=== PATIENT | female | born 1975 | race Caucasian/White ===

== ENCOUNTER 2020-08-29 08:08 | Emergency (ER) | payer BC, MEDICAID, SELFPAY ==
--- NOTE | ~2020-08-29 | XR_ITS ---
XR chest 2V DATE: 08/29/2020 09:11 INDICATION: Cough, shortness of breath, bilateral lung crackles TECHNIQUE: PA and lateral views COMPARISON: None FINDINGS: Normal heart size. No hilar or mediastinal enlargement. No pulmonary infiltrate or consolid ation, pleural effusion or pulmonary vascular congestion or pneumothorax is detected. There is mild dextro scoliosis of the thoracic spine. IMPRESSION: No active cardiopulmonary disease Reviewed, dictated and finalized at location A.
[2020-08-29 08:27] VITALS: BP 115/72; PULSE 93; RESP 22; TEMP 37.3; O2SAT 96
--- NOTE | 2020-08-29 09:29 | ED.URI ---
HPI - URI/Sore Throat General Chief Complaint: Upper Respiratory Infection Stated Complaint: upper respiratory Time Seen by Provider: 08/29/20 08:54 Source: patient and RN notes reviewed Mode of arrival: ambulatory Limitations: no limitations History of Present Illness HPI Narrative: Patient presents today complaining of a 5-day history cough that is occasionally productive, shortness of breath, nasal congestion, wheezing. Denies loss of taste or smell, nausea, vomiting, sore throat, fever. No history of asthma or COPD. Patient had a negative COVID-19 test 2 days ago. She has been taking Mucinex without relief. Smokes 1 pack/day. MD elicited complaint: cough Related Data Home Medications Medication Instructions Recorded Confirmed alprazolam 08/29/20 hydroxyzine HCl 08/29/20 levothyroxine 08/29/20 sertraline mg 08/29/20 zolpidem PO 08/29/20 Allergies Allergy/AdvReac Type Severity Reaction Status Date / Time No Known Allergies Allergy Verified 08/29/20 08:31 Review of Systems Review of Systems: Narrative: CONSTITUTIONAL: Denies body aches, fever, chills, or sweats. EYES: Denies visual changes, redness, or discharge. ENT: Denies rhinorrhea, sore throat, or otalgia. + Congestion CARDIOVASCULAR: Denies chest pain, palpitations, or edema. RESPIRATORY: + Cough, shortness of breath, wheezing. GASTROINTESTINAL: Denies abdominal pain, nausea, vomiting, or diarrhea. GENITOURINARY: Denies dysuria or hematuria. SKIN: Denies rash, itching, or wounds. MUSCULOSKELETAL: Denies back pain, joint pain, or myalgia. NEUROLOGIC: Denies headache, numbness, tingling, or weakness. PSYCH: Denies depression or anxiety. [facility] Social History Social History (Updated 08/29/20 @ 09:31 by Janelle Saavedra, DRUG AND ALCOHOL TREATMENT SPECIALIST, ) Smoking packs per day: 1 Smoking cigarettes per day: 20.0 Smoking status: Current every day smoker Tobacco type: cigarettes Exam Narrative: Exam Narrative: GENERAL: Well-appearing, well-nourished, and in no acute distress. HEAD: Normocephalic, atraumatic. EYES: EOMI. No redness or drainage. Conjunctivae normal. ENT: Mucous membranes pink and moist. Nares clear. No rhinorrhea. TMs normal bilaterally. Throat normal. Uvula midline. NECK: Normal AROM. Supple. No lymphadenopathy. CHEST: No respiratory distress. Crackles in the bilateral bases. Inspiratory wheeze in the right lower lobe. HEART: Regular rate and rhythm. No murmur appreciated. Normal peripheral pulses. ABDOMEN: Soft, nontender, nondistended, normal active bowel sounds. MUSCULOSKELETAL: No bony tenderness. EXTREMITIES: Normal range of motion. No edema. SKIN: Warm, dry, no rash. Capillary refill normal. Normal skin turgor. NEURO: No focal deficits. Alert and oriented x3. Gait steady. PSYCH: Normal affect. No signs of depression or anxiety. Course Vital Signs Vital signs: Vital Signs Temperature 99.1 F 08/29/20 08:27 Pulse Rate 93 08/29/20 08:27 Respiratory Rate 22 H 08/29/20 08:27 Blood Pressure 115/72 08/29/20 08:27 Pulse Oximetry 96 08/29/20 08:27 Temperature 99.1 F 08/29/20 08:27 Pulse Rate 93 08/29/20 08:27 Respiratory Rate 22 H 08/29/20 08:27 Blood Pressure 115/72 08/29/20 08:27 Pulse Oximetry 96 08/29/20 08:27 Reviewed MDM - URI/Sore Throat Differential Diagnosis Differential diagnosis: Likely upper respiratory infection, otitis media, sinusitis, viral infection, bronchitis and other (Pneumonia) Imaging Data Radiologist's impression: ITS Impressions Chest X-Ray 08/29/20 09:14 IMPRESSION: No active cardiopulmonary disease Critical Care Time Critical Care Time Critical Care Time: No Discharge Plan Discharge Clinical Impression: Bronchitis Upper respiratory infection Qualifiers: URI type: unspecified URI Qualified Code(s): J06.9 - Acute upper respiratory infection, unspecified Patient Disposition: Home, Self-Care Condition: Stable Instructions:
== END 2020-08-29 09:40 | disposition home or self-care (01) ==
PROVIDERS: Emergency Provider Nurse Practitioner; PCP Family Medicine
DX: J40 Bronchitis, not specified as acute or chronic (principal); J06.9 Acute upper respiratory infection, unspecified; F17.210 Nicotine dependence, cigarettes, uncomplicated
CPT/HCPCS: 71046; 99203; G0463

== ENCOUNTER 2025-02-04 18:14 | Emergency (ER) | payer OTHER, SELFPAY ==
[2025-02-04 18:20] VITALS: BP 137/50; PULSE 118; RESP 20; TEMP 36.8; O2SAT 95
--- NOTE | 2025-02-04 18:33 | ED.URI ---
HPI - URI/Sore Throat General Chief Complaint: Upper Respiratory Infection Stated Complaint: Headache/Fever/Chills/Shortness of Breath Time Seen by Provider: 02/04/25 18:25 Source: patient and RN notes reviewed Mode of arrival: ambulatory Limitations: no limitations History of Present Illness HPI Narrative: Patient presents today with a 2 day history of headache, chills, subjective fever, shortness of breath, cough, fatigue. She has tried cold and flu medication and her albuterol rescue inhaler with some relief. Denies any known sick contacts. History of COPD. Related Data Home Medications ?Medication ?Instructions ?Recorded ?Confirmed ?Last Taken ?Type alprazolam 0.5 mg tablet 08/29/20 Unknown History hydroxyzine HCl 25 mg tablet 08/29/20 Unknown History sertraline 100 mg tablet mg 08/29/20 Unknown History zolpidem 12.5 mg tablet,extended PO 08/29/20 Unknown History release,multiphase pantoprazole 40 mg tablet,delayed mg PO 02/04/25 Unknown History release Allergies Allergy/AdvReac Type Severity Reaction Status Date / Time No Known Allergies Allergy Verified 08/29/20 08:31 Review of Systems Review of Systems: CONSTITUTIONAL: Denies body aches. + subjective fever, chills, fatigue EYES: Denies visual changes, redness, or discharge. ENT: Denies rhinorrhea, congestion, sore throat, or otalgia. CARDIOVASCULAR: Denies chest pain, palpitations, or edema. RESPIRATORY: + cough, shortness of breath GASTROINTESTINAL: Denies abdominal pain, nausea, vomiting, or diarrhea. GENITOURINARY: Denies dysuria or hematuria. SKIN: Denies rash, itching, or wounds. MUSCULOSKELETAL: Denies back pain, joint pain, or myalgia. NEUROLOGIC: Denies numbness, tingling, or weakness.+ headache PSYCH: Denies depression or anxiety. [facility] Past Medical History Medical History (Updated 02/04/25 @ 18:48 by Janelle Saavedra, ZEN, BC) COPD (chronic obstructive pulmonary disease) Social History Social History Smoking packs per day: 1 Smoking cigarettes per day: 20.0 Smoking status: Current every day smoker Tobacco type: cigarettes Comments At time of signature, I have reviewed and agree with nursing past medical, surgical, social and family history unless otherwise noted. Please see nursing chart for further information. There is no relevant family history pertinent to the presenting complaint Exam Narrative: GENERAL: Ill-appearing, well-nourished, and in no acute distress. HEAD: Normocephalic, atraumatic. EYES: EOMI. No redness or drainage. Conjunctivae normal. ENT: Mucous membranes pink and moist. Nares clear. No rhinorrhea. TMs normal bilaterally. Throat normal. Uvula midline. NECK: Normal AROM. Supple. No lymphadenopathy. CHEST: No respiratory distress. Clear to auscultation. HEART: Regular rate and rhythm. No murmur appreciated. EXTREMITIES: Normal range of motion. No edema. SKIN: Warm, dry, no rash. Capillary refill normal. Normal skin turgor. NEURO: No focal deficits. Alert and oriented x3. Gait steady. PSYCH: Normal affect. No signs of depression or anxiety. Course Course Level of Care: Express Care Visit Vital Signs Vital signs: Vital Signs Temperature 98.2 F 02/04/25 18:20 Pulse Rate 118 H 02/04/25 18:20 Respiratory Rate 20 02/04/25 18:20 Blood Pressure 137/50 L 02/04/25 18:20 Pulse Oximetry 95 02/04/25 18:20 Oxygen Delivery Room Air 02/04/25 18:20 Temperature 98.2 F 02/04/25 18:20 Pulse Rate 118 H 02/04/25 18:20 Respiratory Rate 20 02/04/25 18:20 Blood Pressure 137/50 L 02/04/25 18:20 Pulse Oximetry 95 02/04/25 18:20 Oxygen Delivery Room Air 02/04/25 18:20 Reviewed MDM - URI/Sore Throat MDM Narrative Medical decision making narrative: COVID and influenza negative. Patient will be treated with a course of prednisone and a refill of her albuterol inhaler for exacerbation of her COPD. Symptoms likely viral in etiology. Discussed [id number] medication use and duration of illness. Anticipatory guidance given. ED precautions given. Differential Diagnosis Differential diagnosis: Likely upper respiratory infection, viral infection, influenza and other (COVID-19, COPD exacerbation, pneumonia) Lab Data Attestation: I reviewed the patient's lab results. Labs: Lab Results 02/04/25 Range/Units 18:41 POC Influenza A Ag Negative (Negative) POC Influenza B Ag Negative (Negative) POC SARS CoV-2 Ag Negative (Negative) Critical Care Time Critical Care Time Critical Care Time: No Discharge Plan Discharge Clinical Impression: COPD exacerbation Upper respiratory infection Qualifiers: URI type: unspecified URI Qualified Code(s): J06.9 - Acute upper respiratory infection, unspecified Patient Disposition: Home, Self-Care Condition: Stable Instructions: Upper Respiratory Infection (DC) Additional Instructions: Your influenza and COVID-19 tests are negative today. Your symptoms are likely due to a viral illness, which is not treated with antibiotics. Virus symptoms can last for up to 7-10days. Take Tylenol or ibuprofen for pain or fever. Take the prednisone and use your albuterol inhaler as directed. Consider starting Mucinex to help break up any chest congestion. Rest and stay hydrated. Follow up with your PCP in 7 days if symptoms are not improving. Go to the ER immediately if you develop worsening shortness of breath, difficulty swallowing, chest pain, or any other concerning symptoms. Your blood pressure was elevated above 120/80 today at Urgent Care. This puts you above the threshold for follow up. Please schedule a followup visit with your personal physician as soon as possible, for further evaluation and treatment. Even blood pressure exceeding 120/80 may indicate pre-hypertension. Patient Language: Mongolian Prescriptions: New prednisone 50 mg tablet 50 mg PO DAILY 5 Days Qty: 5 0RF albuterol sulfate 90 mcg/actuation HFA aerosol inhaler 2 inh inhalation Q4-6H PRN (Reason: shortness of breath or wheezing) Qty: 8.5 0RF (DME) [employer] MDI Spacer Spacer See Rx Instructions .ROUTE .MEDSUPPLY Qty: 1 0RF Rx Instructions: As directed No Action pantoprazole 40 mg tablet,delayed release (DR/EC) PO sertraline 100 mg tablet alprazolam 0.5 mg tablet hydroxyzine HCl 25 mg tablet zolpidem 12.5 mg tablet,ext release multiphase PO albuterol sulfate [ProAir HFA] 90 mcg/actuation HFA aerosol inhaler 2 puff INHALATION Q4-6H PRN (Reason: Shortness Of Breath Or Wheezing) Qty: 18 0RF Follow-up/Referrals: Rush,ALTON Desouza [Primary Care Provider] - Stand Alone Forms: Work/School Release IP Time of Disposition: 18:49
[2025-02-04 18:43] LABS: EDCOVIDSCREEN Negative (Negative); EDINFLUASCREEN Negative (Negative); EDINFLUBSCREEN Negative (Negative)
--- OUTSIDE RECORDS SUMMARY | 2025-02-04 19:10 | XMS_ITS | Encounter Summary ---
Author Organization [facility] Address [address] [place] [address] Phone Care Team Providers Care Card Setter Name Role Phone Elver Srinivasan MD Primary Care Provider [phone] Jalen Isaac MD Unavailable Lyly Beverly PAC Primary Care Pro vider Reason for Visit * Reason Comments Medication Refill Encounter Details Date Type Department Care Team (Late st Contact Info) Description 01/20/2021 Refill [facility] Medical Group - Family [facility] [address] [place] [address] Elver Srinivasan MD [address] [place] [address] Medication Refill Social History Tobacco Use Types Packs/Day Years Used Date Smoking Tobacco: Some Days Smokeless Tobacco: Never Alcohol Use Standard Drinks/Week Comments Yes 0 (1 standard drink = 0.6 oz pur e alcohol) Once in a while PHQ-2 Answer Date Recorded PHQ-2 Score 4 12/11/2019 Sexually Active Control Partners Comments Yes Surgical Male Comments No Sex and Gender Information Value Date Recorded Sex Assigned at Not on file Legal Sex Female 4:08 PM CDT Gender Identity Not on file Sexual Orientation Not on file 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 Requested Prescriptions Pending Prescriptions Disp Refills ALPRAZolam (XANAX) 0.5 MG Tablet [Pharmacy Med Name: ALPRAZOLAM 0.5MG TABLET] 90 Tablet 0 Sig: TAKE 1 TABLET BY MOUTH 3 TIMES DAILY NEEDED FOR ANXIETY. 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 Showing future appointments within next 90 days with a meds authorizing provider and meeting all other requirements LTY RESEARCH PHYSICIAN documented in this encounter Plan of Treatment Upcoming Encounters Date Type Department Care Team (Late st Contact Info) Description 03/04/2025 2:00 PM CDT [facility] [address] [place] [address] Lyly Beverly, PAC [address] [place] [address] 03/04/2025 3:00 PM CDT [facility] [address] [place] [address] Lyly Beverly, PAC [address] [place] [address] documented as of this encounter Visit Diagnoses Diagnosis Anxiety Anxiety state, unspecified documented in this encounter Additional Health Concerns Infection Onset Date Last Indicated Resolved Time COVID - 19 11/10/2021 11/10/2021 11/30/2021 12:1 6 AM FACULTY RESEARCH PHYSICIAN COVID - 19 07/21/2022 07/21/2022 07/31/2022 12:1 6 AM CDT COVID - 19 Confirmed 07/21/2022 07/21/2022 022 12:16 AM CDT Assessment Noted Time PHQ-9 Depression Total Score: 4 12/11/19 20 8:37 AM FACULTY RESEARCH PHYSICIAN documented as of this encounter Care Teams Card Setter Relationship Specialty Start Date End Date Elver Srinivasan MD PCP - General Family Medicine 10/02/19 12/04/24 Lyly Beverly, PAC [address] [place] [address] PCP - General Physician Gantry Rigger 12/05/24 Jalen Isaac MD [address] [place] [address] Consulting Physician Colon and Rectal Surgery 09/13/23 documented as of this encounter
--- OUTSIDE RECORDS SUMMARY | 2025-02-04 19:10 | XMS_ITS | Encounter Summary ---
Author Organization [facility] Address [address] [place] [address] Phone Care Team Providers Care Java Solutions Architect Name Role Phone Elver Srinivasan MD Primary Care Provider [phone] Jalen Isaac MD Unavailable Lyly Beverly PAC Primary Care Pro vider Reason for Visit * Reason Comments Medication Refill Encounter Details Date Type Department Care Team (Late st Contact Info) Description 12/16/2021 Refill [facility] Medical Group - Family Medicine [facility] [address] [place] [address] Elver Srinivasan MD [address] [place] [address] Medication Refill Social History Tobacco Use Types Packs/Day Years Used Date Smoking Tobacco: Some Days Cigarettes Smokeless Tobacco: Never Alcohol Use Standard Drinks/Week Comments Not Currently 0 (1 standard drink = 0.6 oz pur e alcohol) Once in a while PHQ-2 Answer Date Recorded Total Score - Questions 1-9 0 07/22 Education Answer Date Recorded What is the highest level of school you have completed or the highest degree you have received? 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 No / Unsure 12/13/2021 12:59 PM SALT GRINDER documented as of this encounter Miscellaneous Notes * Telephone Encounter - Rachel Jaramillo RN - 12/16/2021 2:20 PM CST PRN medication requires review from provider Per nursing clinical judgement, provider to review and approve the medication(s) order(s) if appropriate. Requested Prescriptions Pending Prescriptions Disp Refills albuterol 108 (90 Base) MCG/ACT Aerosol Solution [Pharmacy Med Name: ALBUTEROL HFA (VENTOLIN) INH] 18 g 1 Sig: INHALE 2 PUFFS BY MOUTH EVERY 4 HOURS NEEDED FOR WHEEZING Short Acting Inhaled Beta-Agonists Protocol Passed - 12/16/2021 9:31 AM Passed - Visit with relevant provider in past 12 months or upcoming 90 days Recent Visits Date Type Provider Dept 08/06/21 Office Visit Elver Srinivasan MD [facility] Showing recent visits within past 365 days and meeting all other requirements Future Appointments Date Type Provider Dept 12/28/21 Appointment Elver Srinivasan MD [facility] Showing future appointments within next 90 days and meeting all other requirements GRINDER documented in this encounter Plan of Treatment Upcoming Encounters Date Type Department Care Team (Late st Contact Info) Description 03/04/2025 2:00 PM CDT [facility] [place] [address] Lyly Beverly, PAC [address] [facility] [place] [address] 03/04/2025 3:00 PM CDT Appointment [facility] Ultrasound [address] [place] [address] Lyly Beverly, PAC [address] [facility] [place] [address] documented as of this encounter Visit Diagnoses Diagnosis Persistent shortness of breath after COVID-19 documented in this encounter Additional Health Concerns Infection Onset Date Last Indicated Resolved Time COVID - 19 07/21/2022 07/21/2022 07/31/2022 12:1 6 AM CDT COVID - 19 Confirmed 07/21/2022 07/21/2022 022 12:16 AM CDT Assessment Noted Time PHQ-9 Depression Total Score: 0 08/06/20 21 9:00 AM CDT documented as of this encounter Care Teams Java Solutions Architect Relationship Specialty Start Date End Date Elver Srinivasan MD PCP - General Family Medicine 10/02/19 12/04/24 Lyly Beverly, PAC [address] [place] [address] PCP - General Physician Debrander 12/05/24 Jalen Isaac MD [address] [address] Consulting Physician Colon and Rectal Surgery 09/13/23 documented as of this encounter
--- OUTSIDE RECORDS SUMMARY | 2025-02-04 19:10 | XMS_ITS | Encounter Summary ---
Author Organization [facility] Address [address] 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 No / Unsure 08/29/2020 6:21 AM CDT documented as of this encounter Miscellaneous Notes * Telephone Encounter - Rachel Jaramillo RN - 09/22/2020 2:41 PM CST ENRIKE 07/04/20 - follow up 11/10/20 Last Rx 08/20/20 No UDS Rachel SOTOrock crusher operator failed the protocol, provider to review and approve the medication order if appropriate. Requested Prescriptions Pending Prescriptions Disp Refills gabapentin (NEURONTIN) 100 MG Capsule [Pharmacy Med Name: Gabapentin 100 MG Oral Capsule] 90 Cap 0 Sig: TAKE 1 CAPSULE BY MOUTH THREE TIMES DAILY Neurology: Anticonvulsants Passed - 09/22/2020 8:44 AM Passed - Valid encounter within last 12 months Past Office Visits Recent Outpatient Visits 2 months ago Acquired hypothyroidism [facility] Elver Cook MD 6 months ago Anxiety [facility] Elver Cook MD 9 months ago Other chest pain [facility] Elver Cook MD 9 months ago Moderate episode of recurrent major depressive disorder (HCC) [facility] Elver Cook MD 10 months ago Moderate episode of recurrent major depressive disorder (HCC) [facility] Elver Cook MD Upcoming Appointments Future Appointments In 2 weeks Elver Srinivasan MD [facility] Pradip Collins [facility] [employer] SUPERVISOR - Recent and Past Visits Recent Visits Date Type Provider Dept 07/04/20 Office Visit Elver Srinivasan MD [facility] 03/11/20 Telemedicine Elver Srinivasan MD [facility] 12/19/19 Office Visit Elver Srinivasan MD [facility] 12/11/19 Office Visit Elver Srinivasan MD [facility] 10/30/19 Office Visit Elver Srinivasan MD [facility] 10/02/19 Office Visit Elver Srinivasan MD [facility] Showing recent visits within past 460 days with a meds authorizing provider and meeting all other requirements Future Appointments Date Type Provider Dept 10/06/20 Appointment Elver Srinivasan MD [facility] Showing future appointments within next 90 days with a meds authorizing provider and meeting all other requirements zolpidem (AMBIEN CR) 12.5 MG Tablet Controlled Release [Pharmacy Med Name: Zolpidem Tartrate ER 12.5 MG Oral Tablet Extended Release] 30 Tab 0 Sig: TAKE 1 TABLET BY MOUTH NIGHTLY NEEDED FOR SLEEP Not Delegated - Psychiatry: Anxiolytics/Hypnotics Failed - 09/22/2020 8:44 AM Failed - This refill cannot be delegated Passed - Valid encounter within last 6 months Past Office Visits Recent Outpatient Visits 2 months ago Acquired hypothyroidism [facility] Elver Moreno MD 6 months ago Anxiety [facility] Elver Cook MD 9 months ago Other chest pain [facility] Elver Moreno MD 9 months ago Moderate episode of recurrent major depressive disorder (HCC) [facility] Elver Moreno MD 10 months ago Moderate episode of recurrent major depressive disorder (HCC) [facility] Elver Cook MD Upcoming Appointments Future Appointments In 2 weeks Elver Srinivasan MD [facility] Pradip Collins [facility] [employer] SUPERVISOR - Recent and Past Visits Recent Visits Date Type Provider Dept 07/04/20 Office Visit Elver Srinivasan MD [facility] 03/11/20 Telemedicine Elver Srinivasan MD [facility] 12/19/19 Office Visit Elver Srinivasan MD [facility] 12/11/19 Office Visit Elver Srinivasan MD [facility] 10/30/19 Office Visit Elver Srinivasan MD [facility] 10/02/19 Office Visit Elver Srinivasan MD [facility] Showing recent visits within past 460 days with a meds authorizing provider and meeting all other requirements Future Appointments Date Type Provider Dept 10/06/20 Appointment Elver Srinivasan MD [facility] Showing future appointments within next 90 days with a meds authorizing provider and meeting all other requirements OVEN MASON documented in this encounter Plan of Treatment Upcoming Encounters Date Type Department Care Team (Late st Contact Info) Description 03/04/2025 2:00 PM CDT Appointment [facility] Mammography 1 [place] [address] Lyly Beverly, PAC [address] [place] [address] 03/04/2025 3:00 PM CDT [facility]ointment [facility] Ul[facility]ound 1 [place] [address] Lyly Beverly, PAC [address] [place] [address] documented as of this encounter Visit Diagnoses Diagnosis Numbness and tingling of right upper extremity Pain of right upper extremity Insomnia, unspecified type documented in this encounter Additional Health Concerns Infection Onset Date Last Indicated Resolved Time COVID - 19 11/10/2021 11/10/2021 11/30/2021 12:1 6 AM COKE OVEN MASON COVID - 19 07/21/2022 07/21/2022 07/31/2022 12:1 6 AM CDT COVID - 19 Confirmed 07/21/2022 07/21/2022 022 12:16 AM CDT Assessment Noted Time PHQ-9 Depression Total Score: 4 12/11/19 20 8:37 AM COKE OVEN MASON documented as of this encounter Care Teams Washer Cutter Relationship Specialty Start Date End Date Elver Srinivasan MD PCP - General Family Medicine 10/02/19 12/04/24 Lyly Beverly PAC [address] [place] [address] PCP - General Physician Violin Mechanic 12/05/24 Jalen Isaac MD [address] [address] Consulting Physician Colon and Rectal Surgery 09/13/23 documented as of this encounter
--- OUTSIDE RECORDS SUMMARY | 2025-02-04 19:10 | XMS_ITS | Encounter Summary ---
Author Organization [facility] Address [address] 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 Not on file documented as of this encounter Miscellaneous Notes * Telephone Encounter - Shira Claire RN - 05/05/2020 11:59 AM CDT Requested Prescriptions Pending Prescriptions Disp Refills zolpidem (AMBIEN CR) 12.5 MG Tablet Controlled Release [Pharmacy Med Name: Zolpidem Tartrate ER 12.5 MG Oral Tablet Extended Release] 30 Tab 0 Sig: TAKE 1 TABLET BY MOUTH NIGHTLY NEEDED FOR SLEEP Not Delegated - Psychiatry: Anxiolytics/Hypnotics Failed - 05/05/2020 11:43 AM Failed - This refill cannot be delegated Passed - Valid encounter within last 6 months Past Office Visits Recent Outpatient Visits 1 month ago Anxiety [facility] Elver Alejandre MD 4 months ago Other chest pain [facility] Elver Srinivasan MD 4 months ago Moderate episode of recurrent major depressive disorder (HCC) [facility] Elver Alejandre MD 6 months ago Moderate episode of recurrent major depressive disorder (HCC) [facility] Elver Alejandre MD 7 months ago Visit for annual health examination (Adult) [facility] Elver Alejandre MD Upcoming Appointments ALPRAZolam (XANAX) 0.5 MG Tablet [Pharmacy Med Name: ALPRAZolam 0.5 MG Oral Tablet] 90 Tab 0 Sig: TAKE 1 TABLET BY MOUTH THREE TIMES DAILY NEEDED FOR ANXIETY Not Delegated - Psychiatry: Anxiolytics/Hypnotics Failed - 05/05/2020 11:43 AM Failed - This refill cannot be delegated Passed - Valid encounter within last 6 months Past Office Visits Recent Outpatient Visits 1 month ago Anxiety [facility] Elver Alejandre MD 4 months ago Other chest pain [facility] Elver Alejandre MD 4 months ago Moderate episode of recurrent major depressive disorder (HCC) [facility] Elver Alejandre MD 6 months ago Moderate episode of recurrent major depressive disorder (HCC) [facility] Elver Srinivasan MD 7 months ago Visit for annual health examination (Adult) [facility]YS[facility]IAN [facility] Elver Srinivasan MD Upcoming Appointments documented in this encounter Plan of Treatment Upcoming Encounters Date Type Department Care Team (Late st Contact Info) Description 03/04/2025 2:00 PM CDT Appointment [facility] Mammography 1 [place] [address] Lyly Beverly, PAC [address] [facility] [address] 03/04/2025 3:00 PM CDT Appointment [facility] Ultrasound 1 [place] [address] Lyly Beverly, PAC [address] [facility] [address] documented as of this encounter Visit Diagnoses Diagnosis Insomnia, unspecified type Anxiety Anxiety state, unspecified documented in this encounter Additional Health Concerns Infection Onset Date Last Indicated Resolved Time COVID - 19 11/10/2021 11/10/2021 11/30/2021 12:1 6 AM CHEMICAL PROCESS OPERATOR COVID - 19 07/21/2022 07/21/2022 07/31/2022 12:1 6 AM CDT COVID - 19 Confirmed 07/21/2022 07/21/202208/10/ 022 12:16 AM CDT Assessment Noted Time PHQ-9 Depression Total Score: 4 12/11/19 20 8:37 AM CHEMICAL PROCESS OPERATOR documented as of this encounter Care Teams Lens Inserter Relationship Specialty Start Date End Date Elver Srinivasan MD PCP - General Family Medicine 10/02/19 12/04/24 Lyly Beverly, SUAD [address] [place] [address] PCP - General Physician Mobile Ui Developer 12/05/24 Jalen Isaac MD [address] [address] Consulting Physician Colon and Rectal Surgery 09/13/23 documented as of this encounter
--- OUTSIDE RECORDS SUMMARY | 2025-02-04 19:10 | XMS_ITS | Encounter Summary ---
Author Organization [facility] Address [address] 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 No / Unsure 11/03/2020 9:30 AM REMOTE SENSING ENGINEER documented as of this encounter Miscellaneous Notes * Telephone Encounter - Rachel Jaramillo RN - 11/04/2020 2:29 PM CST Last OV 11/04/20 - follow up none - last fill 10/07/20 - next Rx 11/06/20 Medication failed the protocol, provider to review and approve the medication order if appropriate. Requested Prescriptions Pending Prescriptions Disp Refills Euthyrox 100 MCG Tablet [Pharmacy Med Name: Euthyrox 100 MCG Oral Tablet] 30 Tab 0 Sig: Take 1 tablet by mouth once daily Endocrinology: Hypothyroid Agents Passed - 11/04/2020 9:51 AM Passed - Valid encounter within last 12 months Past Office Visits Recent Outpatient Visits Today Anxiety [facility] Elver Cook MD 4 months ago Acquired hypothyroidism [facility] Elver Cook MD 7 months ago Anxiety [facility] Elver Cook MD 10 months ago Other chest pain [facility] Elver Cook MD 10 months ago Moderate episode of recurrent major depressive disorder (HCC) [facility] Elver Cook MD Upcoming Appointments SHANK FAKER - Recent and Past Visits Recent Visits [...] authorizing provider and meeting all other requirements Today's Visits Date Type Provider Dept 11/04/20 Office Visit Elver rSinivasan MD [facility] Showing today's visits with a meds authorizing provider and meeting all other requirements Future Appointments No visits were found meeting these conditions. Showing future appointments within next 90 days with a meds authorizing provider and meeting all other requirements Passed - TSH in normal range and within 360 days TSH Date Value Ref Range Status 07/23/2020 0.569 0.270 - 4.200 mIU/L Final ALPRAZolam (XANAX) 0.5 MG Tablet [Pharmacy Med Name: ALPRAZolam 0.5 MG Oral Tablet] 90 Tab 0 Sig: TAKE 1 TABLET BY MOUTH THREE TIMES DAILY NEEDED FOR ANXIETY Not Delegated - Psychiatry: Anxiolytics/Hypnotics Failed - 11/04/2020 9:51 AM Failed - This refill cannot be delegated Passed - Valid encounter within last 6 months Past Office Visits Recent Outpatient Visits Today Anxiety [facility] - Elver Moreno MD 4 months ago Acquired hypothyroidism [facility] - Elver Moreno MD 7 months ago Anxiety [facility] Elver Cook MD 10 months ago Other chest pain [facility] Elver Moreno MD 10 months ago Moderate episode of recurrent major depressive disorder (HCC) [facility] Elver Cook MD Upcoming Appointments SHANK FAKER - Recent and Past Visits Recent Visits [...] authorizing provider and meeting all other requirements Today's Visits Date Type Provider Dept 11/04/20 Office Visit Elver Srinivasan MD [facility] Showing today's visits with a meds authorizing provider and meeting all other requirements Future Appointments No visits were found meeting these conditions. Showing future appointments within next 90 days with a meds authorizing provider and meeting all other requirements TE SENSING ENGINEER documented in this encounter Plan of Treatment Upcoming Encounters Date Type Department Care Team (Late st Contact Info) Description 03/04/2025 2:00 PM CDT [facility] 1 [place] [address] Lyly Beverly, PAC [address] [place] [address] 03/04/2025 3:00 PM CDT [facility] 1 [place] [address] Lyly Beverly, PAC [address] [place] [address] documented as of this encounter Visit Diagnoses Diagnosis Acquired hypothyroidism Unspecified hypothyroidism Anxiety Anxiety state, unspecified documented in this encounter Additional Health Concerns Infection Onset Date Last Indicated Resolved Time COVID - 19 11/10/2021 11/10/2021 11/30/2021 12:1 6 AM REMOTE SENSING ENGINEER COVID - 19 07/21/2022 07/21/2022 07/31/2022 12:1 6 AM CDT COVID - 19 Confirmed 07/21/2022 07/21/2022 022 12:16 AM CDT Assessment Noted Time PHQ-9 Depression Total Score: 4 12/11/19 20 8:37 AM REMOTE SENSING ENGINEER documented as of this encounter Care Teams Pie Crimping Machine Operator Relationship Specialty Start Date End Date Elver Srinivasan MD PCP - General Family Medicine 10/02/19 12/04/24 Lyly Beverly PAC [address] [place] [address] PCP - General Physician I&C Technician 12/05/24 Jalen Isaac MD [address] [address] Consulting Physician Colon and Rectal Surgery 09/13/23 documented as of this encounter
--- OUTSIDE RECORDS SUMMARY | 2025-02-04 19:10 | XMS_ITS | Encounter Summary ---
Author Organization [facility] Address [address] [place] [address] Phone Care Team Providers Care Rolloff Driver Name Role Phone Elver Srinivasan MD Primary Care Provider [phone] Jalen Isaac MD Unavailable Lyly Beverly PAC Primary Care Pro vider Reason for Visit * Reason Comments Medication Refill Encounter Details Date Type Department Care Team (Late st Contact Info) Description 09/17/2023 Refill [facility] Medical Group - Family Medicine [facility] [address]2 [place] [address] Elver Srinivasan MD #1 [place] [address] Medication Refill Social History Tobacco Use Types Packs/Day Years Used Date Smoking Tobacco: Every Day Cigarettes 1 15 Smokeless Tobacco: Never Alcohol Use Standard Drinks/Week [...] 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 Requested Prescriptions Pending Prescriptions Disp Refills Phentermine HCl 37.5 MG Tablet [Pharmacy Med Name: PHENTERMINE 37.5 MG TABLET] 30 Tablet 0 Sig: TAKE 1 TABLET BY MOUTH EVERY MORNING BEFORE BREAKFAST Not Delegated - Anorexiants Non-amphetamine Protocol Failed - 09/17/2023 3:45 PM Failed - This refill cannot be delegated Passed - Visit with relevant provider in past 12 months or upcoming 90 days Recent Visits Date Type Provider Dept 08/11/23 Office Visit Elver Srinivasan MD [facility] 06/13/23 Office Visit Elver Srinivasan MD [facility] 04/07/23 Office Visit Elver Srinivasan MD [facility] 04/05/23 [facility] recent visits within past 365 days and meeting all other requirements Future Appointments No visits were found meeting these conditions. Showing future appointments within next 90 days and meeting all other requirements documented in this encounter Plan of Treatment Upcoming Encounters Date Type Department Care Team (Late st Contact Info) Description 03/04/2025 2:00 PM CDT [facility] 1 [place] [address] Lyly Beverly, PAC [address] [place] [address] 03/04/2025 3:00 PM CDT Appointment [facility] Ultrasound [address] [place] [address] Lyly Beverly, PAC [address] [facility] [address] documented as of this encounter Visit Diagnoses Diagnosis Obesity (BMI 30.0-34.9) Obesity, unspecified documented in this encounter Additional Health Concerns Assessment Noted Time PHQ-9 Depression Total Score: 0 08/06/20 21 9:00 AM CDT documented as of this encounter Care Teams Rolloff Driver Relationship Specialty Start Date End Date Elver Srinivasan MD PCP - General Family Medicine 10/02/19 12/04/24 Lyly Beverly, PAC [address] [place] [address] PCP - General Physician Statistical Financial Analyst 12/05/24 Jalen Isaac MD [address] [address] Consulting Physician Colon and Rectal Surgery 09/13/23 documented as of this encounter
--- OUTSIDE RECORDS SUMMARY | 2025-02-04 19:10 | XMS_ITS | Encounter Summary ---
Author Organization [facility] Address [address] [place] [address] Phone Care Team Providers Care Dispatcher Radioactive Waste Disposal Name Role Phone Elver Srinivasan MD Primary Care Provider [phone] Jalen Isaac MD Unavailable Lyly Beverly PAC Primary Care Pro vider Reason for Visit * Reason Comments Medication Refill Encounter Details Date Type Department Care Team (Late st Contact Info) Description 08/04/2020 Refill [facility] Medical Group - Family 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 No / Unsure 08/05/2020 10:37 AM CDT documented as of this encounter Miscellaneous Notes * Telephone Encounter - Erica Barnes RN - 08/05/2020 5:34 PM CDT Medication failed the protocol, provider to review and approve the medication order Requested Prescriptions Pending Prescriptions Disp Refills ALPRAZolam (XANAX) 0.5 MG Tablet [Pharmacy Med Name: ALPRAZolam 0.5 MG Oral Tablet] 90 Tab 0 Sig: TAKE 1 TABLET BY MOUTH THREE TIMES DAILY NEEDED FOR ANXIETY Not Delegated - Psychiatry: Anxiolytics/Hypnotics Failed - 08/05/2020 5:34 PM Failed - This refill cannot be delegated Passed - Valid encounter within last 6 months Past Office Visits Recent Outpatient Visits 1 month ago Acquired hypothyroidism [facility] Elver Srinivasan MD 4 months ago Anxiety [facility] Elver Srinivasan MD 7 months ago Other chest pain [facility] Elver Srinivasan MD 7 months ago Moderate episode of recurrent major depressive disorder (HCC) [facility] Elver Alejandre MD 9 months ago Moderate episode of recurrent major depressive disorder (HCC) [facility] Elver Srinivasan MD Upcoming Appointments Future Appointments In 2 months Elver Srinivasan MD [facility], [facility] AUDIO DIRECTOR - Recent and Past Visits Recent Visits [...] requirements Future Appointments Date Type Provider Dept 10/08/20 Appointment Elver Srinivasan MD [facility] Showing future appointments within next 90 days with a meds authorizing provider and meeting all other requirements levothyroxine (SYNTHROID) 100 MCG Tablet [Pharmacy Med Name: Levothyroxine Sodium 100 MCG Oral Tablet] 30 Tab 2 Sig: Take 1 tablet by mouth once daily Endocrinology: Hypothyroid Agents Passed - 08/05/2020 5:34 PM Passed - Valid encounter within last 12 months Past Office Visits Recent Outpatient Visits 1 month ago Acquired hypothyroidism [facility] Elver Srinivasan MD 4 months ago Anxiety [facility] Elver Srinivasan MD 7 months ago Other chest pain [facility] Elver Srinivasan MD 7 months ago Moderate episode of recurrent major depressive disorder (HCC) [facility] Elver Alejandre MD 9 months ago Moderate episode of recurrent major depressive disorder (HCC) [facility] Elver Srinivasan MD Upcoming Appointments Future Appointments In 2 months Elver Srinivasan MD [facility], [facility] AUDIO DIRECTOR - Recent and Past Visits Recent Visits [...] requirements Future Appointments Date Type Provider Dept 10/08/20 Appointment Elver Srinivasan MD [facility] Showing future appointments within next 90 days with a meds authorizing provider and meeting all other requirements Passed - TSH in normal range and within 360 days TSH Date Value Ref Range Status 07/23/2020 0.569 0.270 - 4.200 mIU/L Final documented in this encounter Plan of Treatment Upcoming Encounters Date Type Department Care Team (Late st Contact Info) Description 03/04/2025 2:00 PM CDT Appointment [facility] Mammography 1 [place] [address] Lyly Beverly, PAC [address] [place] [address] 03/04/2025 3:00 PM CDT Appointment [facility] Ul[facility]ound 1 [place] [address] Lyly Beverly, PAC [address] [place] [address] documented as of this encounter Visit Diagnoses Diagnosis Anxiety Anxiety state, unspecified Acquired hypothyroidism Unspecified hypothyroidism documented in this encounter Additional Health Concerns Infection Onset Date Last Indicated Resolved Time COVID - 19 11/10/2021 11/10/2021 11/30/2021 12:1 6 AM NUTRITION TECH COVID - 19 07/21/2022 07/21/2022 07/31/2022 12:1 6 AM CDT COVID - 19 Confirmed 07/21/2022 07/21/2022 022 12:16 AM CDT Assessment Noted Time PHQ-9 Depression Total Score: 4 12/11/19 20 8:37 AM NUTRITION TECH documented as of this encounter Care Teams Dispatcher Radioactive Waste Disposal Relationship Specialty Start Date End Date Elver Srinivasan MD PCP - General Family Medicine 10/02/19 12/04/24 Lyly Beverly PAC [address] [place] [address] PCP - General Physician Securities Broker 12/05/24 Jalen Isaac MD [address] [address] Consulting Physician Colon and Rectal Surgery 09/13/23 documented as of this encounter
--- OUTSIDE RECORDS SUMMARY | 2025-02-04 19:10 | XMS_ITS | Clinical Summary ---
Author Organization [facility] Physician Office Building [address] [place] [id number] Care Team Providers Care School Clerk Name Role Phone Shilpa Hernandez NP Primary Care Provider [phone] Lyly Bobo Unavailable [phone] Allergies Active Allergy Reactions Criticality Noted Date Comments Venom-Honey Bee Anaphylaxis High 09/25/2019 Wasp Venom Anaphylaxis High 09/25/2019 Medications ALPRAZolam (XANAX) 0.5 mg tablet TAKE 1 TABLET BY MOUTH 3 TIMES DAILY NEEDED FOR ANXIETY. 1 Active hydrOXYzine (ATARAX) 25 mg tablet Take 25 mg by mouth every 8 (eight) hours as needed 0 Active levothyroxine (Euthyrox) 100 mcg tablet Take 1 tablet by mouth once daily 1 Active venlafaxine (EFFEXOR) 37.5 mg tablet Take 75 mg by mouth daily Active HYDROcodone-chevy taminophen (NORCO) 5-325 mg per tabletIndicatio ns:Pain Take 1-2 tablets every 4 hours as needed for pain 10 tablet 1 Active omega-3 fatty acids 1,000 mg capsule Take by mouth daily Active albuterol HFA (ProAir HFA) 90 mcg/actuation inhaler ProAir HFA 90 mcg/actuation aerosol inhaler INHALE 2 PUFFS BY MOUTH EVERY 4 TO 6 HOURS NEEDED FOR SHORTNESS OF BREATH FOR WHEEZING Active sertraline (ZOLOFT) 100 mg tablet sertraline 100 mg tablet TAKE ONE & ONE HALF TABLETS BY MOUTH ONCE DAILY Active zolpidem CR (AMBIEN CR) 12.5 mg CR tablet zolpidem ER 12.5 mg tablet,extended release,multiph ase TAKE 1 TABLET BY MOUTH NIGHTLY NEEDED FOR SLEEP Active Active Problems Problem Noted Date Diagnosed Date Carpal tunnel syndrome, right 03/25/2021 Overview (03/25/2021): Added automatically from request for surgery [id number] Nontoxic multinodular goiter 02/10/2021 Assessment & Plan (02/10/2021 10:20 AM CDT): S/p partial thyroidectomy in 2018 Bilateral sub-centimeter thyroid nodules Stable in size with ultrasound done 10/12/19 and 08/07/20 Plan: The findings on ultrasound reviewed with patient Obtain copy of pathology report regarding thyroid surgery Continue to monitor nodules and repeat Ultrasound later this year Anxiety 02/10/2021 Postoperative hypothyroidism 02/10/2021 Assessment & Plan (02/10/2021 10:20 AM CDT): Started Levothyroxine in 2018 Patient is clinically euthyroid TSH was 0.56 on 07/23/20 Plan: Continue same dose of Levothyroxine The proper way of taking Levothyroxine reviewed with patient. Check TSH 1-2 x per year I will adjust the dose based on lab results. Right carpal tunnel syndrome 02/04/2021 Surgical History Surgery Date Site/Laterality Comments THYROID SURGERY TUBAL LIGATION Medical History Medical History Date Comments Hypercholesteremia Heart murmur Thyroid disease Gastric reflux Peripheral neuropathy Anemia Depression Migraines Hypothyroidism PONV (postoperative nausea and vomiting) Family History Medical History Relation Name Comments Breast cancer Cousin trip Breast cancer Mother's Sister Arthritis Other Diabetes Other Heart disease Other Hypertension Other Kidney disease Other Mental illness Other Seizures Other Stroke Other Relation Name Status Comments Cousin trip Mother's Sister Other Social History Tobacco Use Types Packs/Day Years Used Date Smoking Tobacco: Every Day Cigarettes Smokeless Tobacco: Never Alcohol Use Standard Drinks/Week Comments Not Currently 0 (1 standard drink = 0.6 oz pur e alcohol) AUDIT-C Answer Date Recorded Q1: How often do you have a drink containing alc ohol? Never 04/29/2021 Average Number of Drinks Not on file 021 Frequency of Binge Drinking Not on file 07/2021 Comments No Sex and Gender Information Value Date Recorded Sex Assigned at Not on file Legal Sex Female 9:55 AM GLOBE CLEANER Gender Identity Female 02/03/2021 6:39 AM CDT Sexual Orientation Straight 10/14/2020 6: 47 PM GLOBE CLEANER Obstetrics History Para Term AB IAB SAB Ectopic Multiple Livin g Live Births 5 5 5 Date Outcome GA Total Labor Labor/2nd/3rd Weight Sex Type Anes PTL Rose Marie A1 A5 Name Clin Term Term Term Term Term Last Filed Vital Signs Vital Sign Reading Time Taken Comments Blood Pressure 108/62 07/10/2021 7:30 AM CDT Pulse 100 07/10/2021 8:15 AM CDT Temperature 36.7 C (98.1 F) 07/10/2021 5:10 AM CDT Respiratory Rate 18 07/10/2021 5:10 AM CDT Oxygen Saturation 94% 07/10/2021 8:15 AM CDT Inhaled Oxygen Concentration - - Weight 86 kg (189 lb 9.5 oz) 07/10/2021 5:10 AM CDT Height 167.6 cm (5' 6 ) 07/10/2021 5:10 AM CDT Body Mass Index 30.6 07/10/2021 5:10 AM CDT Plan of Treatment Health Maintenance Due Date Last Done Comments Cervical Cancer Screening 1974 Colon Cancer Screening-Colonoscopy 1974 Depression Screening 1974 Hepatitis C Screening 1974 Hepatitis B Screening 1992 Regular Well Visit/Exam 18-64 1992 Pneumococcal vaccine <65 (1 of 2 - PCV) 1993 Covid-19 Vaccine (3 - 2023-2 5 season) 2024 07/07/2021, 06/16/2021 Influenza Vaccine (#1) 2024 , 08/06/2021, 11/04/2020, Additional history exists Zoster Vaccine (1 of 2) 2024 Breast Cancer Screening-Mammogram 09/19/2024 023 DTaP/Tdap/Td Vaccine (8 - Td or Tdap) 10/30/2029 10/30/2019, 2005, 06/08/1984, Additional history exists Procedures Procedure Name Priority Date/Time Associated Diagnosis Comments SCREENING MAMMOGRAM BILATERAL W ROBBIE Schedule Routine, Read Routine (OP Routine) 09/19/2023 8:41 AM CDT Screening mammogram, encounter for from Last 3 Months or Most Recently Relevant to Health Maintenance Results * (ABNORMAL) Screening Mammogram Bilateral W Robbie (09/19/2023 8:41 AM CDT) Anatomical Region Laterality Modality Breast Bilateral Mammography 09/19/2023 8:55 AM CDT Impressions 09/19/2023 8:55 AM CDT 1. Indeterminate asymmetry with possible mild architectural distortion in the upper right breast at middle to posterior depth on MLO view. Further evaluation with right unilateral diagnostic mammogram and possible sonogram recommended. 2. No suspicious findings identified in the left breast. BI-RADS: 0 - Additional imaging evaluation is necessary. The patient has been or will be contacted. Electronically signed by: CLIFF Omalley 09/19/2023 8:55 AM CDT EXAMINATION: SCREENING MAMMOGRAM BILATERAL W ROBBIE ORDERING HEALTHCARE PROVIDER: SELF SCREENING MAMMOGRAM HISTORY: Routine screening mammography. COMPARISON: This is patient's baseline mammogram. TECHNIQUE: CC and MLO views of both breasts were obtained with digital technique using digital breast tomosynthesis with C view. Computer aided detection was utilized. FINDINGS: DENSITY: The breasts have scattered areas of fibroglandular density. BREASTS: Multiple small round and oval masses with circumscribed margins are seen in both breasts. These are considered benign given their multiplicity and appearance, and a likely represent cysts. However, there is an asymmetry in the upper right breast at middle to posterior depth on MLO view which demonstrates possible mild architectural distortion on digital breast tomosynthesis image 32. There are no other suspicious findings in either breast. us Self Screening Mammogram IMG MAMMO PROCEDURES Fi nal Result from Last 3 Months or Most Recently Relevant to Health Maintenance Insurance [facility] [facility] CHOICE PLUS [facility] HMO/PPO Address: [address] [address] [place] [address] Care Teams School Clerk Relationship Specialty Start Date End Date Shilpa Hernandez NP [address] [place] [address] PCP - General Nurse Practitioner 01/23/21 Lyly Bobo PA [address] [place] [address] Physician Balance Wheel Motion Inspector Orthopedic Surgery 04/29/21
--- OUTSIDE RECORDS SUMMARY | 2025-02-04 19:10 | XMS_ITS | Encounter Summary ---
Author Organization [facility] Address [address] [place] [address] Phone Care Team Providers Care Portfolio Mgr Name Role Phone Elver Srinivasan MD Primary Care Provider [phone] Jalen Isaac MD Unavailable Lyly Beverly PAC Primary Care Pro vider Reason for Visit * Reason Comments Medication Refill Encounter Details Date Type Department Care Team (Late st Contact Info) Description 11/23/2021 Refill [facility] Medical Group - Family Medicine [facility] #2 [place] [address] Elver Srinivasan MD [address] [place] [address] Medication Refill Social History Tobacco Use Types [...] or the highest degree you have received? 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 No / Unsure 11/10/2021 12:56 PM MOTORIZED SQUAD LIEUTENANT documented as of this encounter Miscellaneous Notes * Telephone Encounter - Rachel Jaramillo RN - 11/24/2021 7:56 AM CST Medication failed the protocol, provider to review and approve the medication order if appropriate. Requested Prescriptions Pending Prescriptions Disp Refills levothyroxine (SYNTHROID) 100 MCG Tablet [Pharmacy Med Name: LEVOTHYROXINE 100 MCG TABLET] 90 Tablet 1 Sig: TAKE 1 TABLET BY MOUTH EVERY DAY Thyroid Hormones Protocol Failed - 11/23/2021 12:38 AM Failed - Normal TSH in past 12 months TSH Date Value Ref Range Status 08/06/2021 0.179 (L) 0.270 - 4.200 mIU/L Final Passed - No test in the past 12 months or most recent test was negative Passed - Visit with relevant provider in past 12 months or upcoming 90 days Recent Visits Date Type Provider Dept 08/06/21 Office Visit Elver Srinivasan MD [facility] Showing recent visits within past 365 days and meeting all other requirements Future Appointments Date Type Provider Dept 12/14/21 Appointment Elver Srinivasan MD [facility] Showing future appointments within next 90 days and meeting all other requirements Passed - No active on record RIZED SQUAD LIEUTENANT documented in this encounter Plan of Treatment Upcoming Encounters Date Type Department Care Team (Late st Contact Info) Description 03/04/2025 2:00 PM CDT [facility] 1 [place] [address] Lyly Beverly, PAC [address] [place] [address] 03/04/2025 3:00 PM CDT Appointment [facility] Ultrasound [address] [place] [address] Lyly Beverly, PAC [address] [place] [address] documented as of this encounter Visit Diagnoses Diagnosis Acquired hypothyroidism Unspecified hypothyroidism documented in this encounter Additional Health Concerns Infection Onset Date Last Indicated Resolved Time COVID - 19 11/10/2021 11/10/2021 11/30/2021 12:1 6 AM MOTORIZED SQUAD LIEUTENANT COVID - 19 07/21/2022 07/21/2022 07/31/2022 12:1 6 AM CDT COVID - 19 Confirmed 07/21/2022 07/21/2022 022 12:16 AM CDT Assessment Noted Time PHQ-9 Depression Total Score: 0 08/06/20 9:00 AM CDT documented as of this encounter Care Teams Portfolio Mgr Relationship Specialty Start Date End Date Elver Srinivasan MD PCP - General Family Medicine 10/02/19 12/04/24 Lyly Beverly, PAC [address] [place] [address] PCP - General Physician Dye Mixer 12/05/24 Jalen Isaac MD [address] [address] Consulting Physician Colon and Rectal Surgery 09/13/23 documented as of this encounter
--- OUTSIDE RECORDS SUMMARY | 2025-02-04 19:10 | XMS_ITS | Encounter Summary ---
Author Organization [facility] Address [address] [place] [address] Phone Care Team Providers Care Pensions Retirement Plan Specialist Name Role Phone Elver Srinivasan MD Primary Care Provider [phone] Jalen Isaac MD Unavailable Lyly Beverly PAC Primary Care Pro vider Reason for Visit * Reason Comments Medication Refill Encounter Details Date Type Department Care Team (Late st Contact Info) Description 08/19/2020 Refill [facility] Medical Group - Family [facility] #2 [place] [id number] Elver Srinivasan MD [address] [place] [address] Medication Refill Social History Tobacco Use Types [...] 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 No / Unsure 08/05/2020 10:37 AM CDT documented as of this encounter Miscellaneous Notes * Telephone Encounter - Bere Darden RN - 08/20/2020 3:33 PM CDT Medication failed the protocol, provider to review and approve the medication order. Requested Prescriptions Pending Prescriptions Disp Refills zolpidem (AMBIEN CR) 12.5 MG Tablet Controlled Release [Pharmacy Med Name: Zolpidem Tartrate ER 12.5 MG Oral Tablet Extended Release] 30 Tab 0 Sig: TAKE 1 TABLET BY MOUTH NIGHTLY NEEDED FOR SLEEP Not Delegated - Psychiatry: Anxiolytics/Hypnotics Failed - 08/19/2020 11:53 AM Failed - This refill cannot be delegated Passed - Valid encounter within last 6 months Past Office Visits Recent Outpatient Visits 1 month ago Acquired hypothyroidism [facility] Elver Cook MD 5 months ago Anxiety [facility] Elver Cook MD 8 months ago Other chest pain [facility] Elver Cook MD 8 months ago Moderate episode of recurrent major depressive disorder (HCC) [facility] Elver Zamudio MD 9 months ago Moderate episode of recurrent major depressive disorder (HCC) [facility] Elver Cook MD Upcoming Appointments Future Appointments In 1 month Elver Srinivasan MD [facility] MED DIR - Recent and Past Visits Recent Visits [...] authorizing provider and meeting all other requirements gabapentin (NEURONTIN) 100 MG Capsule [Pharmacy Med Name: Gabapentin 100 MG Oral Capsule] 90 Cap 0 Sig: TAKE 1 CAPSULE BY MOUTH THREE TIMES DAILY Neurology: Anticonvulsants Passed - 08/19/2020 11:53 AM Passed - Valid encounter within last 12 months Past Office Visits Recent Outpatient Visits 1 month ago Acquired hypothyroidism [facility] Elver Moreno MD 5 months ago Anxiety [facility] Elver Moreno MD 8 months ago Other chest pain [facility] Elver Moreno MD 8 months ago Moderate episode of recurrent major depressive disorder (HCC) [facility] Elver Cook MD 9 months ago Moderate episode of recurrent major depressive disorder (HCC) [facility] Elver Cook MD Upcoming Appointments Future Appointments In 1 month Elver [facility]rinivasan MD [facility] Recent and Past Visits Recent Visits [...] Provider Dept 10/08/20 Appointment Elver Srinivasan MD [facility] Showing future appointments within next 90 days with a meds authorizing provider and meeting all other requirements documented in this encounter Plan of Treatment Upcoming Encounters Date Type Department Care Team (Late st Contact Info) Description 03/04/2025 2:00 PM CDT [facility]ment [facility] Mammography 1 [place] [address] Lyly Beverly, PAC [address] [place] [address] 03/04/2025 3:00 PM CDT Appointment [facility] Ultrasound 1 [place] [address] Lyly Beverly, PAC [address] [place] [address] documented as of this encounter Visit Diagnoses Diagnosis Insomnia, unspecified type Numbness and tingling of right upper extremity Pain of right upper extremity documented in this encounter Additional Health Concerns Infection Onset Date Last Indicated Resolved Time COVID - 19 11/10/2021 11/10/2021 11/30/2021 12:1 6 AM SPINNING AND WINDING SUPERVISOR COVID - 19 07/21/2022 07/21/2022 07/31/2022 12:1 6 AM CDT COVID - 19 Confirmed 07/21/2022 07/21/2022 022 12:16 AM CDT Assessment Noted Time PHQ-9 Depression Total Score: 4 12/11/19 20 8:37 AM SPINNING AND WINDING SUPERVISOR documented as of this encounter Care Teams Pensions Retirement Plan Specialist Relationship Specialty Start Date End Date Elver Srinivasan MD PCP - General Family Medicine 10/02/19 12/04/24 Lyly Beverly, SUAD [address] [place] [address] PCP - General Physician Aircraft Maintenance Director 12/05/24 Jalen Isaac MD [address] [address] Consulting Physician Colon and Rectal Surgery 09/13/23 documented as of this encounter
--- OUTSIDE RECORDS SUMMARY | 2025-02-04 19:10 | XMS_ITS | Encounter Summary ---
Author Organization [facility] Address [address] 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 Requested Prescriptions Pending Prescriptions Disp Refills albuterol 108 (90 Base) MCG/ACT Aerosol Solution [Pharmacy Med Name: ALBUTEROL HFA (VENTOLIN) INH] 18 g 1 Sig: INHALE 2 PUFFS BY MOUTH EVERY 4 HOURS NEEDED FOR WHEEZE Short Acting Inhaled Beta-Agonists Protocol Passed - 09/22/2021 4:28 PM Passed - Visit with relevant provider in past 12 months or upcoming 90 days Recent Visits Date Type Provider Dept 08/06/21 Office Visit Elver Srinivasan MD [facility] 11/04/20 Office Visit Elver Srinivasan MD [facility] Showing recent visits within past 365 days and meeting all other requirements Future Appointments Date Type Provider Dept 10/02/21 Appointment Elver Srinivasan MD [facility] Showing future appointments within next 90 days and meeting all other requirements documented in this encounter Plan of Treatment Upcoming Encounters Date Type Department Care Team (Late st Contact Info) Description 03/04/2025 2:00 PM CDT Appointment [facility] Mammography 1 [place] [address] Lyly Beverly, PAC [address] [place] [address] 03/04/2025 3:00 PM CDT Appointment [facility] Ultrasound [address] [place] [address] Lyly Beverly, PAC [address] [place] [address] documented as of this encounter Visit Diagnoses Diagnosis Persistent shortness of breath after COVID-19 documented in this encounter Additional Health Concerns Infection Onset Date Last Indicated Resolved Time COVID - 19 11/10/2021 11/10/2021 11/30/2021 12:1 6 AM ROLL CARRIER COVID - 19 07/21/2022 07/21/2022 07/31/2022 12:1 6 AM CDT COVID - 19 Confirmed 07/21/2022 07/21/2022 022 12:16 AM CDT Assessment Noted Time PHQ-9 Depression Total Score: 0 08/06/20 9:00 AM CDT documented as of this encounter Care Teams Manager Target Relationship Specialty Start Date End Date Elver Srinivasan MD PCP - General Family Medicine 10/02/19 12/04/24 Lyly Beverly, [facility] [address] [place] [address] PCP - General Physician Solution Maker 12/05/24 Jalen Isaac MD [address] [address] Consulting Physician Colon and Rectal Surgery 09/13/23 documented as of this encounter
--- OUTSIDE RECORDS SUMMARY | 2025-02-04 19:10 | XMS_ITS | Encounter Summary ---
Author Organization [facility] Address [address] 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 No / Unsure 08/29/2020 6:21 AM CDT documented as of this encounter Miscellaneous Notes * Telephone Encounter - Bere Darden RN - 09/08/2020 9:00 AM CDT Medication failed the protocol, provider to review and approve the medication order. Requested Prescriptions Pending Prescriptions Disp Refills ALPRAZolam (XANAX) 0.5 MG Tablet [Pharmacy Med Name: ALPRAZolam 0.5 MG Oral Tablet] 90 Tab 0 Sig: TAKE 1 TABLET BY MOUTH THREE TIMES DAILY NEEDED FOR ANXIETY Not Delegated - Psychiatry: Anxiolytics/Hypnotics Failed - 09/06/2020 6:41 PM Failed - This refill cannot be delegated Passed - Valid encounter within last 6 months Past Office Visits Recent Outpatient Visits 2 months ago Acquired hypothyroidism [facility] Elver Cook MD 6 months ago Anxiety [facility] Elver Cook MD 8 months ago Other chest pain [facility] Elver Cook MD 9 months ago Moderate episode of recurrent major depressive disorder (HCC) [facility] Elver Cook MD 10 months ago Moderate episode of recurrent major depressive disorder (HCC) [facility] Elver Cook MD Upcoming Appointments Future Appointments In 4 weeks Elver Srinivasan MD [facility] [place] [facility] SLITTER SCORER - Recent and Past Visits Recent Visits [...] Info) Description 03/04/2025 2:00 PM CDT Appointment [facility] Mammography 1 [place] [address] Lyly Beverly, PAC [address] [place] [address] 03/04/2025 3:00 PM CDT Appointment [facility] Ultrasound 1 [place] [address] Lyly Beverly, PAC [address] [place] [address] documented as of this encounter Visit Diagnoses Diagnosis Anxiety Anxiety state, unspecified documented in this encounter Additional Health Concerns Infection Onset Date Last Indicated Resolved Time COVID - 19 11/10/2021 11/10/2021 11/30/2021 12:1 6 AM PARAFFIN PLANT OPERATOR COVID - 19 07/21/2022 07/21/2022 07/31/2022 12:1 6 AM CDT COVID - 19 Confirmed 07/21/2022 07/21/2022 022 12:16 AM CDT Assessment Noted Time PHQ-9 Depression Total Score: 4 12/11/19 20 8:37 AM PARAFFIN PLANT OPERATOR documented as of this encounter Care Teams Server Developer Relationship Specialty Start Date End Date Elver Srinivasan MD PCP - General Family Medicine 10/02/19 12/04/24 Lyly Beverly PAC [address] [place] [address] PCP - General Physician Product Sales Representative 12/05/24 Jalen Isaac MD #[address] [address] Consulting Physician Colon and Rectal Surgery 09/13/23 documented as of this encounter
--- OUTSIDE RECORDS SUMMARY | 2025-02-04 19:10 | XMS_ITS | Encounter Summary ---
Author Organization [facility] Address [address] 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 No / Unsure 08/10/2023 5:40 PM CDT documented as of this encounter Miscellaneous Notes * Telephone Encounter - Rachel Jaramillo RN - 08/29/2023 11:47 AM CDT Medication failed the protocol, provider to review and approve the medication order if appropriate. Requested Prescriptions Pending Prescriptions Disp Refills venlafaxine (EFFEXOR-XR) 150 MG CAPSULE SR 24 HR [Pharmacy Med Name: VENLAFAXINE HCL ER 150 MG CAP]90 Capsule 1 Sig: TAKE 1 CAPSULE BY MOUTH DAILY. TAKE DAILY WITH THE 75 MG CAPSULE. SNRI (6 Month Refill Only) Protocol Failed - 08/28/2023 6:15 AM Failed - Patient has established therapy with Serotonin-Norepinephrine Reuptake Inhibitors for at least 6 months Passed - No test in the past 12 months or most recent test was negative Passed - No active on record Passed - Visit with relevant provider in past 6 months or upcoming 90 days Recent Visits Date Type Provider Dept 08/11/23 Office Visit Elver Srinivasan MD [facility] 06/13/23 Office Visit Elver Srinivasan MD [facility] 04/07/23 Office Visit Elver Srinivasan MD [facility] 04/05/23 Office Visit Elver Srinivasan MD [facility] Showing recent visits within past 182 days and meeting all other requirements Future Appointments No visits were found meeting these conditions. Showing future appointments within next 90 days and meeting all other requirements Passed - Has an encounter in the past 6 months with a depression or anxiety visit diagnosis documented in this encounter Plan of Treatment Upcoming Encounters Date Type Department Care Team (Late st Contact Info) Description 03/04/2025 2:00 PM CDT [facility] 1 [facility] [place] [phone] Lyly Beverly, PAC [address] [place] [address] 03/04/2025 3:00 PM CDT Appointment [facility] Ultrasound 1 [place] [address] Lyly Beverly, PAC [address] [place] [address] documented as of this encounter Visit Diagnoses Not on filedocumented in this encounter Additional Health Concerns Assessment Noted Time PHQ-9 Depression Total Score: 0 08/06/20 21 9:00 AM CDT documented as of this encounter Care Teams Learning Center Instructor Relationship Specialty Start Date End Date Elver Srinivasan MD PCP - General Family Medicine 10/02/19 12/04/24 Lyly Beverly, PAC [address] [place] [address] PCP - General Physician Middleware Administrator 12/05/24 Jalen Isaac MD [address] [address] Consulting Physician Colon and Rectal Surgery 09/13/23 documented as of this encounter
--- OUTSIDE RECORDS SUMMARY | 2025-02-04 19:10 | XMS_ITS | Encounter Summary ---
Author Organization [facility] Address [address] 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 Requested Prescriptions Pending Prescriptions Disp Refills albuterol 108 (90 Base) MCG/ACT Aerosol Solution [Pharmacy Med Name: ALBUTEROL HFA (PROVENTIL) INH]18 g 1 Sig: TAKE 2 PUFFS BY INHALATION EVERY 4 HOURS NEEDED FOR WHEEZING OR COUGH. Short Acting Inhaled Beta-Agonists Protocol Passed - 11/21/2022 2:12 AM Passed - Visit with relevant provider in past 12 months or upcoming 90 days Recent Visits Date Type Provider Dept 04/05/22 Office Visit [facility] S[facility] MD [facility] [place] Showing recent visits within past 365 days and meeting all other requirements Future Appointments No visits were found meeting these conditions. Showing future appointments within next 90 days and meeting all other requirements SFORMATION CONSULTANT documented in this encounter Plan of Treatment Upcoming Encounters Date Type Department Care Team (Late st Contact Info) Description 03/04/2025 2:00 PM CD[facility] 1 [place] [address] Lyly Beverly, PAC [address] [place] [address] 03/04/2025 3:00 PM CDT [facility] 1 [facility] [place] [address] Lyly Beverly, PAC [address] [place] [address] documented as of this encounter Visit Diagnoses Diagnosis Persistent shortness of breath after COVID-19 documented in this encounter Additional Health Concerns Assessment Noted Time PHQ-9 Depression Total Score: 0 08/06/20 21 9:00 AM CDT documented as of this encounter Care Teams Editorial Specialist Relationship Specialty Start Date End Date Elver Srinivasan MD PCP - General Family Medicine 10/02/19 12/04/24 Lyly Beverly, PAC [address] [place] [address] PCP - General Physician Sewer Pipe Sorter 12/05/24 Jalen Isaac MD #[address] [address] Consulting Physician Colon and Rectal Surgery 09/13/23 documented as of this encounter
--- OUTSIDE RECORDS SUMMARY | 2025-02-04 19:10 | XMS_ITS | Encounter Summary ---
Author Organization [facility] Address [address] 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 Requested Prescriptions Pending Prescriptions Disp Refills ALPRAZolam (XANAX) 0.5 MG Tablet [Pharmacy Med Name: ALPRAZolam 0.5 MG Oral Tablet] 90 Tab 0 Sig: TAKE 1 TABLET BY MOUTH THREE TIMES DAILY NEEDED FOR ANXIETY Not Delegated - Psychiatry: Anxiolytics/Hypnotics Failed - 10/06/2020 9:05 AM Failed - This refill cannot be delegated Passed - Valid encounter within last 6 months Past Office Visits Recent Outpatient Visits 3 months ago Acquired hypothyroidism [facility] Elver Moreno MD 6 months ago Anxiety [facility] Elver Moreno MD 9 months ago Other chest pain [facility] Elver Cook MD 10 months ago Moderate episode of recurrent major depressive disorder (HCC) [facility] Elver Cook MD 11 months ago Moderate episode of recurrent major depressive disorder (HCC) [facility] Elver Moreno MD Upcoming Appointments MARBLE CEILING INSTALLER - Recent and Past Visits Recent Visits Date Type Provider Dept 07/04/20 Office Visit Elver Srinivasan MD [facility] 03/11/20 Telemedicine Elver Srinivasan MD [facility] 12/19/19 Office Visit Elver Srinivasan MD [facility] 12/11/19 Office Visit Elver Srinivasan MD [facility] 10/30/19 Office Visit Elver Srinivasan MD [facility] 10/02/19 Office Visit Elver Srinivasan MD [facility] Showing recent visits within past 460 days with a meds authorizing provider and meeting all other requirements Future Appointments No visits were found meeting these conditions. Showing future appointments within next 90 days with a meds authorizing provider and meeting all other requirements SORTER documented in this encounter Plan of Treatment Upcoming Encounters Date Type Department Care Team (Late st Contact Info) Description 03/04/2025 2:00 PM CDT [facility] Mammography 1 [place] [address] Lyly Beverly, PAC [address] [place] [address] 03/04/2025 3:00 PM CDT Appointment [facility] Ultrasound 1 [place] [address] Lyly Beverly, PAC [address] [place] [address] documented as of this encounter Visit Diagnoses Diagnosis Anxiety Anxiety state, unspecified documented in this encounter Additional Health Concerns Infection Onset Date Last Indicated Resolved Time COVID - 19 11/10/2021 11/10/2021 11/30/2021 12:1 6 AM SACK SORTER COVID - 19 07/21/2022 07/21/2022 07/31/2022 12:1 6 AM CDT COVID - 19 Confirmed 07/21/2022 07/21/2022 022 12:16 AM CDT Assessment Noted Time PHQ-9 Depression Total Score: 4 12/11/19 20 8:37 AM SACK SORTER documented as of this encounter Care Teams Rug Receiving Clerk Relationship Specialty Start Date End Date Elver Srinivasan MD PCP - General Family Medicine 10/02/19 12/04/24 Lyly Beverly, PAC [address] [place] [address] PCP - General Physician Organisational Psychologist 12/05/24 Jalen Isaac MD #[address] [address] Consulting Physician Colon and Rectal Surgery 09/13/23 documented as of this encounter
--- OUTSIDE RECORDS SUMMARY | 2025-02-04 19:10 | XMS_ITS | Encounter Summary ---
Author Organization [facility] Address [address] 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 Requested Prescriptions Pending Prescriptions Disp Refills levothyroxine (SYNTHROID) 100 MCG Tablet [Pharmacy Med Name: LEVOTHYROXINE 100 MCG TABLET] 90 Tablet 1 Sig: TAKE 1 TABLET BY MOUTH EVERY DAY Thyroid Hormones Protocol Failed - 05/29/2022 12:30 PM Failed - Normal TSH in past 12 months TSH Date Value Ref Range Status 08/06/2021 0.179 (L) 0.270 - 4.200 mIU/L Final Passed - No test in the past 12 months or most recent test was negative Passed - Visit with relevant provider in past 12 months or upcoming 90 days Recent Visits Date Type Provider Dept 04/05/22 Office Visit Elver Srinivasan MD [facility] 08/06/21 Office Visit Elver Srinivasan MD [facility] [place] Showing recent visits within past 365 days and meeting all other requirements Future Appointments No visits were found meeting these conditions. Showing future appointments within next 90 days and meeting all other requirements Passed - No active on record documented in this encounter Plan of Treatment Upcoming Encounters Date Type Department Care Team (Late st Contact Info) Description 03/04/2025 2:00 PM CDT [facility] 1 [place] [address] Lyly Beverly, PAC [address] [place] [address] 03/04/2025 3:00 PM CDT Appointment [facility] Ultrasound [address] [place] [address] Lyly Beverly, PAC [address] [facility] [place] [address] documented as of this encounter Visit Diagnoses [...] documented as of this encounter Care Teams Baggage Checker Relationship Specialty Start Date End Date Elver Srinivasan MD PCP - General Family Medicine 10/02/19 12/04/24 Lyly Beverly, PAC [address] [place] [address] PCP - General Physician Edge Glue Machine Tender 12/05/24 Jalen Isaac MD [address] [address] Consulting Physician Colon and Rectal Surgery 09/13/23 documented as of this encounter
--- OUTSIDE RECORDS SUMMARY | 2025-02-04 19:10 | XMS_ITS | Encounter Summary ---
Author Organization [facility] Address [address] [place] [address] Phone Care Team Providers Care Business Development Director Name Role Phone Elver Srinivasan MD Primary Care Provider [phone] Jalen Isaac MD Unavailable Lyly Beverly PAC Primary Care Pro vider Reason for Visit * Reason Comments Medication Refill Encounter Details Date Type Department Care Team (Late st Contact Info) Description 04/07/2020 Refill [facility] - Family [facility] #2 [place] [phone] Elver Srinivasan MD #1 [place] [address] Medication Refill Social History Tobacco Use Types [...] 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 Not on file documented as of this encounter Miscellaneous Notes * Telephone Encounter - Shira Claire RN - 04/07/2020 1:40 PM CDT Requested Prescriptions Pending Prescriptions Disp Refills ALPRAZolam (XANAX) 0.5 MG Tablet [Pharmacy Med Name: ALPRAZolam 0.5 MG Oral Tablet] 90 Tab 0 Sig: TAKE 1 TABLET BY MOUTH THREE TIMES DAILY NEEDED FOR ANXIETY Not Delegated - Psychiatry: Anxiolytics/Hypnotics Failed - 04/07/2020 1:38 PM Failed - This refill cannot be delegated Passed - Valid encounter within last 6 months Past Office Visits Recent Outpatient Visits 3 months ago Other chest pain [facility] Elver Srinivasan MD 3 months ago Moderate episode of recurrent major depressive disorder (HCC) [facility] Elver Srinivasan MD 5 months ago Moderate episode of recurrent major depressive disorder (HCC) [facility] Elver Srinivasan MD 6 months ago Visit for annual health examination (Adult) [facility] Elver Srinivasan MD Upcoming Appointments documented in this encounter Plan of Treatment Upcoming Encounters Date Type Department Care Team (Late st Contact Info) Description 03/04/2025 2:00 PM CD[facility] 1 [place] [address] Lyly Beverly, PAC [address] [place] [place] [address] 03/04/2025 3:00 PM CDT [facility] 1 [place] [address] Lyly Beverly, PAC [address] [place] [address] documented as of this encounter Visit Diagnoses Diagnosis Anxiety Anxiety state, unspecified documented in this encounter Additional Health Concerns Infection Onset Date Last Indicated Resolved Time COVID - 19 11/10/2021 11/10/2021 11/30/2021 12:1 6 AM BELL CLERK COVID - 19 07/21/2022 07/21/2022 07/31/2022 12:1 6 AM CDT COVID - 19 Confirmed 07/21/2022 07/21/2022 022 12:16 AM CDT Assessment Noted Time PHQ-9 Depression Total Score: 4 12/11/19 20 8:37 AM BELL CLERK documented as of this encounter Care Teams Business Development Director Relationship Specialty Start Date End Date Elver Srinivasan MD PCP - General Family Medicine 10/02/19 12/04/24 Lyly Beverly, [facility] [address] [place] [address] PCP - General Physician Denture Contour Wire Specialist 12/05/24 Jalen Isaac MD #[address] [address] Consulting Physician Colon and Rectal Surgery 09/13/23 documented as of this encounter
--- OUTSIDE RECORDS SUMMARY | 2025-02-04 19:10 | XMS_ITS | Encounter Summary ---
Author Organization [facility] Address [address] 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 Requested Prescriptions Pending Prescriptions Disp Refills albuterol 108 (90 Base) MCG/ACT Aerosol Solution [Pharmacy Med Name: ALBUTEROL HFA (PROVENTIL) INH]1 Sig: TAKE 2 PUFFS BY INHALATION EVERY 4 HOURS NEEDED FOR WHEEZING OR COUGH. Short Acting Inhaled Beta-Agonists Protocol Passed - 01/20/2023 11:39 AM Passed - Visit with relevant provider in past 12 months or upcoming 90 days Recent Visits Date Type Provider Dept 04/05/22 Office Visit Elver Srinivasan MD [facility] Showing recent visits within past 365 days and meeting all other requirements Future Appointments No visits were found meeting these conditions. Showing future appointments within next 90 days and meeting all other requirements HOLOGIST MILITARY PERSONNEL documented in this encounter Plan of Treatment Upcoming Encounters Date Type Department Care Team (Late st Contact Info) Description 03/04/2025 2:00 PM CDT Appointment [facility] Mammography 1 [place] [address] Lyly Beverly, PAC [address] [place] [address] 03/04/2025 3:00 PM CDT Appointment [facility] Ultrasound 1 [place] [address] Lyly Beverly, PAC [address] [place] [address] documented as of this encounter Visit Diagnoses Diagnosis Persistent shortness of breath after COVID-19 documented in this encounter Additional Health Concerns Assessment Noted Time PHQ-9 Depression Total Score: 0 08/06/20 21 9:00 AM CDT documented as of this encounter Care Teams Associate Professor Of Chemistry Relationship Specialty Start Date End Date Elver Srinivasan MD PCP - General Family Medicine 10/02/19 12/04/24 Lyly Beverly, PAC [address] [place] [address] PCP - General Physician Cupboard Builder 12/05/24 Jalen Isaac MD [address] [address] Consulting Physician Colon and Rectal Surgery 09/13/23 documented as of this encounter
--- OUTSIDE RECORDS SUMMARY | 2025-02-04 19:10 | XMS_ITS | Encounter Summary ---
Author Organization [facility] Address [address] 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 Not on file documented as of this encounter Miscellaneous Notes * Telephone Encounter - Shira Claire, RN - 06/06/2020 1:19 PM CDT Requested Prescriptions Pending Prescriptions Disp Refills zolpidem (AMBIEN CR) 12.5 MG Tablet Controlled Release [Pharmacy Med Name: Zolpidem Tartrate ER 12.5 MG Oral Tablet Extended Release] 30 Tab 0 Sig: TAKE 1 TABLET BY MOUTH NIGHTLY NEEDED FOR SLEEP Not Delegated - Psychiatry: Anxiolytics/Hypnotics Failed - 06/05/2020 9:35 AM Failed - This refill cannot be delegated Passed - Valid encounter within last 6 months Past Office Visits Recent Outpatient Visits 2 months ago Anxiety [facility] Elver Alejandre MD 5 months ago Other chest pain [facility] Elver Srinivasan MD 5 months ago Moderate episode of recurrent major depressive disorder (HCC) [facility] Elver Alejandre MD 7 months ago Moderate episode of recurrent major depressive disorder (HCC) [facility] Elver Alejandre MD 8 months ago Visit for annual health examination (Adult) [facility] Elver Alejandre MD Upcoming Appointments ALPRAZolam (XANAX) 0.5 MG Tablet [Pharmacy Med Name: ALPRAZolam 0.5 MG Oral Tablet] 90 Tab 0 Sig: TAKE 1 TABLET BY MOUTH THREE TIMES DAILY NEEDED FOR ANXIETY Not Delegated - Psychiatry: Anxiolytics/Hypnotics Failed - 06/05/2020 9:35 AM Failed - This refill cannot be delegated Passed - Valid encounter within last 6 months Past Office Visits Recent Outpatient Visits 2 months ago Anxiety [facility] Elver Alejandre MD 5 months ago Other chest pain [facility] Elver Alejandre MD 5 months ago Moderate episode of recurrent major depressive disorder (HCC) [facility] Elver Alejandre MD 7 months ago Moderate episode of recurrent major depressive disorder (HCC) [facility] Elver Srinivasan MD 8 months ago Visit for annual health examination (Adult) [facility] Elver Srinivasan MD Upcoming Appointments documented in this encounter Plan of Treatment Upcoming Encounters Date Type Department Care Team (Late st Contact Info) Description 03/04/2025 2:00 PM CDT Appointment [facility] Mammography 1 [place] [address] Lyly Beverly, PAC [address] [place] [address] 03/04/2025 3:00 PM CDT Appointment [facility] Ultrasound 1 [place] [address] Lyly Beverly, PAC [address] [address] documented as of this encounter Visit Diagnoses Diagnosis Insomnia, unspecified type Anxiety Anxiety state, unspecified documented in this encounter Additional Health Concerns Infection Onset Date Last Indicated Resolved Time COVID - 19 11/10/2021 11/10/2021 11/30/2021 12:1 6 AM BUSINESS ADMINISTRATION INSTRUCTOR COVID - 19 07/21/2022 07/21/2022 07/31/2022 12:1 6 AM CDT COVID - 19 Confirmed 07/21/2022 07/21/202208/10/ 022 12:16 AM CDT Assessment Noted Time PHQ-9 Depression Total Score: 4 12/11/19 20 8:37 AM BUSINESS ADMINISTRATION INSTRUCTOR documented as of this encounter Care Teams Gambling Counsellor Relationship Specialty Start Date End Date Elver Srinivasan MD PCP - General Family Medicine 10/02/19 12/04/24 Lyly Beverly, SUAD [address] [place] [address] PCP - General Physician Chronic Care Nurse 12/05/24 Jalen Isaac MD [address] [address] Consulting Physician Colon and Rectal Surgery 09/13/23 documented as of this encounter
--- OUTSIDE RECORDS SUMMARY | 2025-02-04 19:10 | XMS_ITS | Referral Summary ---
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 Right carpal tunnel syndrome 02/04/2021 Social History Tobacco Use Types Packs/Day Years [...] on file Legal Sex Female 9:55 AM TRAVELING INVENTORY ASSOCIATE Gender Identity Female 02/03/2021 6:39 AM CDT Sexual Orientation Straight 10/14/2020 6: 47 PM TRAVELING INVENTORY ASSOCIATE Last Filed Vital Signs Vital Sign Reading [...] 07/10/2021 5:10 AM CDT Plan of Treatment Not on file Procedures Procedure Name Priority Date/Time Associated Diagnosis [...] Recently Relevant to Health Maintenance Insurance [employer] [facility] [place] [facility] CHOICE [facility]US [facility] HMO/PPO Address: [address] [address] [place] [address] Care Teams Software Quality Assurance Analyst Relationship Specialty Start Date End Date Shilpa Hernandez NP [address] [place] [address] PCP - General Nurse Practitioner 01/23/21 Lyly Bobo PA [address] [place] [address] Physician Flare Stitcher Orthopedic Surgery 04/29/21
--- OUTSIDE RECORDS SUMMARY | 2025-02-04 19:10 | XMS_ITS | Clinical Summary ---
Author Organization [facility] Address [address] [place] [address] Phone Care Team Providers Care Warehouse Laborer Name Role Phone Jalen Isaac MD Unavailable Lyly Beverly PAC Primary Care Pro vider Allergies Active Allergy Reactions Criticality Noted Date Comments Bee Venom Anaphylaxis High 09/25/2019 Wasp Venom Anaphylaxis High 09/25/2019 Medications Advair HFA 115-21 MCG/ACT Aerosol inhale two puffs by mouth twice a day 4 Active hydrOXYzine (ATARAX) 50 MG TabletIndicatio ns:Anxiety Take 1 Tablet by mouth nightly as needed for Anxiety or Sleep. 90 Tablet 5 Active venlafaxine (EFFEXOR-XR) 150 MG CAPSULE SR 24 HR Take 1 Capsule by mouth daily. Take daily with the 75 mg capsule. 90 Capsule 5 Active pantoprazole (PROTONIX) 40 MG Tablet Delayed Response Take 1 Tablet by mouth daily. 90 Tablet 5 Active pantoprazole (PROTONIX) 40 MG Tablet Delayed Response Take 1 Tablet by mouth daily. 30 Tablet 5 01/23/20 25 Discontinu ed(Reorder ) Active Problems Problem Noted Date Diagnosed Date Gastroesophageal reflux disease without esophagi tis 12/05/2024 Chronic obstructive pulmonary disease 12/05/2024 Tachycardia 12/05/2024 Mass of right breast 12/05/2024 Abnormal mammogram 12/05/2024 Screening for colon cancer 12/05/2024 Nontoxic multinodular goiter 02/10/2021 Overview (08/06/2021): Last Assessment & Plan: S/p partial thyroidectomy in 2018 Bilateral sub-centimeter thyroid nodules Stable in size with ultrasound done 10/12/19 and 08/07/20 Plan: The findings on ultrasound reviewed with patient Obtain copy of pathology report regarding thyroid surgery Continue to monitor nodules and repeat Ultrasound later this year Carpal tunnel syndrome of right wrist 02/04/2021 Overview (08/06/2021): Added automatically from request for surgery [id number] Hot flashes 03/11/2020 Insomnia 12/11/2019 Postoperative hypothyroidism 12/11/2019 Overview (08/06/2021): Last Assessment & Plan: Started Levothyroxine in 2018 Patient is clinically euthyroid TSH was 0.56 on 07/23/20 Plan: Continue same dose of Levothyroxine The proper way of taking Levothyroxine reviewed with patient. Check TSH 1-2 x per year I will adjust the dose based on lab results. Anxiety 10/02/2019 Depression 10/02/2019 Encounters Date Type Department Care Team Description 01/22/2025 Refill [facility] [place] [address] [place] [id number] Lyly Beverly, SUAD Medication Refill 01/07/2025 Travel 12/27/2024 MyChart RX Renewal [facility] [place] [address] [place] [address] Lyly Beverly PAC Medication Renewal Declined 12/27/2024 Telephone [facility] [address] [place] [address] Lyly Beverly, PAC 12/25/2024 Travel 12/25/2024 Refill [facility] [address] [facility] [place] [address] Lyly Beverly, PAC Medication Refill 12/24/2024 Refill [facility] [place] [address] [place] [address] Lyly Beverly, PAC Medication Refill 12/20/2024 1:36 PM [employer] - 12/20/2024 11:59 PM FOLDER SE[employer]ER [employer] Hospital [facility] [address] [place] [address] Lyly Beverly, PAC Discharge Disposition: Discharged to home or Selfcare 12/20/2024 12:27 PM FOLDER SEAMER [employer] - 12/20/2024 1:35 PM FOLDER SEAMER [employer] Hospital Encounter [facility] [address] [place] [address] Lyly Beverly, PAC Discharge Disposition: Discharged to home or Selfcare 12/19/2024 9:02 AM FOLDER SEAMER [employer] - 12/19/2024 11:59 PM FOLDER SE[employer]ER [employer] Hospital Encounter [facility] [address] [place] [address] Provider, Not On File Discharge Disposition: Discharged to home or Selfcare 12/19/2024 9:00 AM FOLDER SEAMER [employer] - 12/19/2024 9:01 AM FOLDER SE[employer]ER [employer] Hospital Encounter [facility] [address] [place] [address] Provider, Not On File Discharge Disposition: Discharged to home or Selfcare 12/19/2024 8:59 AM FOLDER SEAMER [employer] Hospital Encounter [facility] [address] [place] [address] Provider, Not On File Discharge Disposition: Discharged to home or Selfcare 12/19/2024 8:55 AM FOLDER SEAMER [employer]OM[employer] - 12/19/2024 8:58 AM FOLDER SEAMER [employer]OM[employer] Hospital Encounter [facility] 1 [facility] [place] [address] Provider, Not On File Discharge Disposition: Discharged to home or Selfcare 12/18/2024 MyChart RX Renewal [facility] [address] [place] [address] Elver Srinivasan MD Medication Renewal Reviewed 12/18/2024 Travel 12/07/2024 7:56 AM FOLDER SEAMER [employer] - 12/07/2024 11:59 PM FOLDER SEAMER [employer] Hospital Encounter [facility] [address] [place] [address] Provider, Not On File Discharge Disposition: Discharged to home or Selfcare 12/06/2024 Telephone [facility] Internal Medicine [facility] [address] [place] [address] Lyly Beverly, SUAD 12/05/2024 1:00 PM FOLDER SEAM[employer] Office Visit [facility] Internal Medicine [facility] [address] [place] [address] Lyly Beverly, SUAD Rash (Primary Dx); Well adult exam; Abnormal mammogram; Mass of right breast, unspecified quadrant; Screening for colon cancer; Tachycardia; Chronic obstructive pulmonary disease, unspecified COPD type (HCC) Discharge Disposition: Discharged to home or Selfcare 12/03/2024 Travel from Last 3 Months Immunizations Immunization Administration Dates Next Due Covid-19, Mrna, Lnp-s, Pf, 3 0 Mcg/0.3 Ml Dose (Taptica) 07/07/2021,06/16/2021 DTAP VACCINE 08/21/1978, 6,1974,1973,1974 Inactivated Polio Vaccine 02/19/1979,11/1974,1974,1973 Influenza Vaccine, Quadrivalent, PF 12/02/2022,08/06/2021,11/04/2020,2018 Mumps Vaccine 12/02/1975 Rubella Vaccine 11/04/1975 TD VACCINE 06/08/1984 TDAP Vaccine 10/30/2019,2005 Family History Medical History Relation Name Comments Diabetes Brother Saeid Seizures Brother Saeid No Known Problems Father Diabetes Maternal Grandfather Jose Stroke Maternal Grandmother Sandra Diabetes Mother Luven Heart Attack Mother Luven Heart Disease Mother Luven High Cholesterol Mother Luven Hypertension Mother Luven Kidney Disease Mother Luven Migraines Mother Luven Renal Failure Mother Luven Thyroid Disease Mother Luven Thyroid Nodule Mother Luven No Known Problems Paternal Grandfather No Known Problems Paternal Grandmother No Known Problems Sister Relation Name Status Comments Brother Saeid Alive Father Alive Maternal Grandfather Jose Maternal Grandmother Sandra Alive Mother Luven Paternal Grandfather Paternal Grandmother Alive Sister Alive Social History Tobacco Use Types Packs/Day Years Used Date Smoking Tobacco: Every Day Cigarettes 1 15 Smokeless Tobacco: Never Tobacco Cessation:Ready to Q uit: No; Counseling Given: Yes Alcohol Use Standard Drinks/Week Comments Not Currently 0 (1 standard drink = 0.6 oz pur e alcohol) Once in a while [facility] Utilities Answer Date Recorded In the past 12 months has e electric, gas, oil, or water company threatened to shut off services in your home? No 12/03/2024 Social Connection and Isolation Panel [NHANES] A nswer Date Recorded In a typical week, how many times do you talk on the phone with family, friends, or neighbors? Twice a week 12/03/2024 How often do you get together with friends or re latives? Once a week 12/03/2024 How often do you attend jainism or mosque serv ices? Never 12/03/2024 Do you belong to any clubs o r organizations such as jainism groups, unions, fraternal or athletic groups, or school groups? No 12/03/2024 How often do you attend meet ings of the clubs or organizations you belong to? Never 12/03/2024 Are you , , di vorced, , never , or living with a partner? 12/03/2024 AUDIT-C Answer Date Recorded Q1: How often do you have a drink containing alc ohol? Monthly or less 12/03/2024 Q2: How many drinks containi ng alcohol do you have on a typical day when you are drinking? 1 or 2 12/03/2024 Q3: How often do you have si x or more drinks on one occasion? Never 12/03/2024 Overall Financial Resource Strain (CARDIA) Answe r Date Recorded How hard is it for you to pa y for the very basics like food, housing, medical care, and heating? Somewhat hard 12/03/2024 PHQ-2 Answer Date Recorded Total Score - Questions 1-9 12 11/21 [facility] [place] [facility] - Occupational Stress Questionnaire Answer Date Recorded Do you feel stress - tense, restless, nervous, or anxious, or unable to sleep at night because your mind is troubled all the time - these days? Very much 12/03/2024 Exercise Vital Sign Answer Date Recorde d On average, how many days pe r week do you engage in moderate to strenuous exercise (like a brisk walk)? 0 days 12/03/2024 On average, how many minutes do you engage in exercise at this level? 0 min 12/03/2024 Hunger Vital Sign Answer Date Recorded Within the past 12 months, y ou worried that your food would run out before you got the money to buy more. Never true 12/03/19 25 Within the past 12 months, t he food you bought just didn't last and you didn't have money to get more. Never true 12/03/2024 PRAPARE - Transportation Answer Date Re corded In the past 12 months, has l ack of transportation kept you from medical appointments or from getting medications? No 11/21 In the past 12 months, has l ack of transportation kept you from meetings, work, or from getting things needed for daily living? No 12/03/2024 Housing Stability Vital Sign Answer Joey e Recorded In the last 12 months, was t here a time when you were not able to pay the mortgage or rent on time? Yes 12/03/2024 In the past 12 months, how m any times have you moved where you were living? 1 12/03/2024 At any time in the past 12 m [facility], were you homeless or living in a correction (including now)? 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 Not on file Not on file Last Filed Vital Signs Vital Sign Reading Time Taken Comments Blood Pressure 106/87 12/05/2024 12:56 PM [employer] Pulse 114 12/05/2024 12:56 PM [employer] Temperature 36.4 C (97.6 F) 12/05/2024 12:56 PM [employer] Respiratory Rate 12 12/05/2024 12:5 6 PM [employer] Oxygen Saturation 92% 2023 3:25 PM CDT Inhaled Oxygen Concentration - - Weight 101.5 kg (223 lb 12.8 oz) 2024 12:56 PM [employer] Height 165.1 cm (5' 5 ) 12/05/2024 12:5 6 PM [employer] Body Mass Index 37.24 12/05/2024 12:56 PM [employer]DER [employer] Plan of Treatment Upcoming Encounters Date Type Department Care Team (Late st Contact Info) Description 03/04/2025 2:00 PM CDT Appointment [facility] Mammography 1 [place] [address] Lyly Bveerly, PAC [address] [place] [address] 03/04/2025 3:00 PM CDT Appointment [facility] Ultrasound 1 [place] [address] Lyly Beverly, PAC [address] [place] [address] Health Maintenance Due Date Last Done Comments Hepatitis C Virus (HCV) Screening 1975 Hepatitis B Immunization (1 of 3 - 19+ 3-dose series) 1993 Pneumococcal Immunization (50+ years) (1 of 2 - PCV) 1993 Pap Smear 1995 Cervical Cancer Screening (CCS) 2004 HPV/Cotest 2004 Colonoscopy 2019 Colorectal Cancer Screening 2019 Cologuard 2024 Immunochemical Fecal Occult Blood 2024 Zoster Immunization (1 of 2) 2024 Mammogram 09/19/2024 09/19/2023, 09/19/2023 DTaP/Tdap/Td Immunization (8 - Td or Tdap) 10/30/2029 10/30/2019, 2005, 06/08/1984, Additional history exists Td Immunization Every 10 Years (Adults With 1 Tdap) 10/30/2029 10/30/2019, 2005, 06/08/1984 Respiratory Syncytial Virus (RSV) Immunization (Adult) (1 - 1-dose 75+ series) 2049 SARS-COV-2 Immunization Discontinued 12/14/19 22, 07/07/2021, 06/16/2021 Discussion re Starting/Frequency of Mammograms Discontinued 09/19/2023, 09/19/2023 Influenza Immunization Completed , 10/24/2022, 08/06/2021, Additional history exists Meningococcal Immunization (ACWY) Aged Out No longer eligible based on patient's age to complete this topic Rotavirus Immunization Aged Out No lo nger eligible based on patient's age to complete this topic Procedures Procedure Name Priority Date/Time Associated Diagnosis Comments HOLTER MONITOR RECORDING ONLY-48 HOUR Routine 12/20/2024 1:36 PM [employer] Tachycardia COMPLETE PFT W + W/O BRONCHODILATOR Routine 12/20/2024 Chronic obstructive pulmonary disease, unspecified COPD type (HCC) FAISAL REFERENCE IMAGES FOR IMAGE IMPORT Routine 12/19/2024 9:02 AM F[employer]DER [employer] FAISAL US REFERENCE IMAGES FOR IMAGE IMPORT Routine 12/19/2024 9:00 AM FOLDER SEAMER [employer]OM[employer]IC FAISAL US REFERENCE IMAGES FOR IMAGE IMPORT Routine 12/19/2024 8:59 AM FOLDER SE[employer]ER [employer]IC FAISAL REFERENCE IMAGES FOR IMAGE IMPORT Routine 12/19/2024 8:55 AM F[employer]DER SE[employer]ER [employer] FAISAL REFERENCE IMAGES FOR IMAGE IMPORT Routine 12/07/2024 7:56 AM [employer] MAMMOGRAM BILATERAL GENERIC 09/19/2023 12:00 AM CDT from Last 3 Months or Most Recently Relevant to Health Maintenance Results * HOLTER MONITOR RECORDING ONLY-48 HOUR (12/20/2024 1:36 PM F[employer]DER SE[employer]) Anatomical Region Laterality Modality CARDIO N/A Electrocardiogra phy Narrative 12/25/2024 3:15 PM FOLDER SEAMER [employer]IC HOLTER MONITOR REPORT: Patient name: Sudha Yoo Patient : 1975 Patient Age: 49 y.o. Indication: Tachycardia Requesting provider: Lyly Beverly MD Study Duration: Prescribed period 3 days, Interpretable data 1 day 21 hours 16 mins Summary: Minimum HR: 63 BPM Average HR: 85 BPM Maximum HR 132 BPM 1. Atrial ectopy / premature atrial complexes (PAC) - 19 supraventricular ectopic beats occurred (<1 % of complexes) mainly as isolated ectopy. 2. Ventricular ectopy / premature ventricular complexes (PVC) - 3730 ventricular ectopic beats occurred (2 % of complexes) mainly as isolated ectopy. 16 couplets and 0 runs of ventricular ectopy occurred. 3. No significant bradycardia or pauses occurred. 4. Atrial fibrillation/flutter was not detected Manually Triggered events: There were no manually triggered events. Other tracings mainly demonstrated sinus rhythm. Conclusion: No sustained arrhythmias. Procedure Note Kristyn Barger MD - 12/25/2024 HOLTER MONITOR REPORT: Patient name: Sudha Yoo Patient : 1975 Patient Age: 49 y.o. Indication: Tachycardia Requesting provider: Lyly Beverly MD Study Duration: Prescribed period 3 days, Interpretable data 1 day 21 hours 16 mins Summary: Minimum HR: 63 BPM Average HR: 85 BPM Maximum HR 132 BPM 1. Atrial ectopy / premature atrial complexes (PAC) - 19supraventricular ectopic beats occurred (<1 % of complexes) mainly asisolated ectopy. 2. Ventricular ectopy / premature ventricular complexes (PVC) - 3730ventricular ectopic beats occurred (2 % of complexes) mainly as isolatedectopy. 16 couplets and 0 runs of ventricular ectopy occurred. 3. No significant bradycardia or pauses occurred. 4. Atrial fibrillation/flutter was not detected Manually Triggered events: There were no manually triggered events. Other tracings mainly demonstrated sinus rhythm. Conclusion: No sustained arrhythmias. us Lyly Mcmillanarlin PAC IMG ECG ORDERABLE S Final Result * FAISAL REFERENCE IMAGES FOR IMAGE IMPORT (12/19/2024 9:02 AM F[employer]DER [employer]) Only the most recent of3 resultswithin the time period is included. us Not On File Provider IMG MAMMO ORDERABLES Final Result * FAISAL US REFERENCE IMAGES FOR IMAGE IMPORT (12/19/2024 9:00 AM F[employer]) Only the most recent of2 resultswithin the time period is included. us Not On File Provider IMG MAMMO ORDERABLES Final Result * MAMMOGRAM BILATERAL MISCELLANEOUS (09/19/2023 12:00 AM CDT) 09/19/2023 us Provider Scan IMG MAMMO ORDERABLES Final Resul t SCAN from Last 3 Months or Most Recently Relevant to Health Maintenance Insurance MEDICAID [employer] [facility] Care Teams Warehouse Laborer Relationship Specialty Start Date End Date Lyly Beverly, SUAD [address] [place] [address] PCP - General Physician Cs Associate 12/05/24 Jalen Isaac MD [address] [address] Consulting Physician Colon and Rectal Surgery 09/13/23
--- OUTSIDE RECORDS SUMMARY | 2025-02-04 19:10 | XMS_ITS | Encounter Summary ---
Author Organization [facility] Address [address] 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 No / Unsure 08/10/2023 5:40 PM CDT documented as of this encounter Miscellaneous Notes * Telephone Encounter - Mallory Pfeiffer RN - 09/01/2023 3:12 PM CDT Per nursing clinical judgement, provider to review and approve the medication(s) order(s) if appropriate. Requested Prescriptions Pending Prescriptions Disp Refills albuterol 108 (90 Base) MCG/ACT Aerosol Solution [Pharmacy Med Name: ALBUTEROL HFA (PROVENTIL) INH]1 Sig: TAKE 2 PUFFS BY INHALATION EVERY 4 HOURS NEEDED FOR WHEEZING OR COUGH. Short Acting Inhaled Beta-Agonists Protocol Passed - 09/01/2023 10:19 AM Passed - Visit with relevant provider in past 12 months or upcoming 90 days Recent Visits Date Type Provider Dept 08/11/23 Office Visit Elver Srinivasan MD [facility] 06/13/23 Office Visit Elver Srinivasan MD [facility] 04/07/23 Office Visit Elver Srinivasan MD [facility] 04/05/23 Office Visit Elver Srinivasan MD [facility] [...] Info) Description 03/04/2025 2:00 PM CDT [facility] 1 [facility] [place] [address] Lyly Beverly, PAC [address] [place] [address] 03/04/2025 3:00 PM CDT Appointment [facility] Ultrasound [address] [place] [address] Lyly Beverly, PAC [address] [place] [address] documented as of this encounter Visit Diagnoses Diagnosis Persistent shortness of breath after COVID-19 documented in this encounter Additional Health Concerns Assessment Noted Time PHQ-9 Depression Total Score: 0 08/06/20 21 9:00 AM CDT documented as of this encounter Care Teams Dock Hand Relationship Specialty Start Date End Date Elver Srinivasan MD PCP - General Family Medicine 10/02/19 12/04/24 Lyly Beverly, PAC [address] [place] [address] PCP - General Physician Wireless Architect 12/05/24 Jalen Isaac MD [address] [address] [address] Consulting Physician Colon and Rectal Surgery 09/13/23 documented as of this encounter
--- OUTSIDE RECORDS SUMMARY | 2025-02-04 19:10 | XMS_ITS | Encounter Summary ---
Author Organization [facility] Address [address] 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 Requested Prescriptions Pending Prescriptions Disp Refills Euthyrox 100 MCG Tablet [Pharmacy Med Name: Euthyrox 100 MCG Oral Tablet] 30 Tab 0 Sig: Take 1 tablet by mouth once daily Endocrinology: Hypothyroid Agents Passed - 12/08/2020 11:48 AM Passed - Valid encounter within last 12 months Past Office Visits Recent Outpatient Visits 1 month ago Anxiety [facility] Elver Cook MD 5 months ago Acquired hypothyroidism [facility] Elver Cook MD 9 months ago Anxiety [facility] Elver Cook MD 11 months ago Other chest pain [facility] Elver Cook MD 12 months ago Moderate episode of recurrent major depressive disorder (HCC) [facility] Elver Cook MD Upcoming Appointments MEDICAL ADMINISTRATOR - Recent and Past Visits Recent Visits [...] [place] 10/02/19 Office Visit Elver Srinivasan MD [facility] [place] Showing recent visits within past 460 [...] Not Delegated - Psychiatry: Anxiolytics/Hypnotics Failed - 12/08/2020 11:48 AM Failed - This refill cannot be delegated Passed - Valid encounter within last 6 months Past Office Visits Recent Outpatient Visits 1 month ago Anxiety [facility] Elver Cook MD 5 months ago Acquired hypothyroidism [facility] Elver Cook MD 9 months ago Anxiety [facility] Elver Cook MD 11 months ago Other chest pain [facility] Elver Moreno MD 12 months ago Moderate episode of recurrent major depressive disorder (HCC) [facility] Elver Cook MD Upcoming Appointments MEDICAL ADMINISTRATOR - Recent and Past Visits Recent Visits [...] [place] 10/02/19 Office Visit Elver Srinivasan MD [facility] [place] Showing recent visits within past 460 days with a meds authorizing provider and meeting all other requirements Future Appointments No visits were found meeting these conditions. Showing future appointments within next 90 days with a meds authorizing provider and meeting all other requirements CAL RECORDS COORDINATOR documented in this encounter Plan of Treatment Upcoming Encounters Date Type Department Care Team (Late st Contact Info) Description 03/04/2025 2:00 PM CDT [facility] 1 [place] [address] Lyly Beverly, PAC [address] [place] [address] 03/04/2025 3:00 PM CDT [facility] 1 [place] [address] Lyly Beverly, PAC [address] [place] [address] documented as of this encounter Visit Diagnoses Diagnosis Acquired hypothyroidism Unspecified hypothyroidism Anxiety Anxiety state, unspecified documented in this encounter Additional Health Concerns Infection Onset Date Last Indicated Resolved Time COVID - 19 11/10/2021 11/10/2021 11/30/2021 12:1 6 AM MEDICAL RECORDS COORDINATOR COVID - 19 07/21/2022 07/21/2022 07/31/2022 12:1 6 AM CDT COVID - 19 Confirmed 07/21/2022 07/21/2022 022 12:16 AM CDT Assessment Noted Time PHQ-9 Depression Total Score: 4 12/11/19 20 8:37 AM MEDICAL RECORDS COORDINATOR documented as of this encounter Care Teams Claim Investigator Relationship Specialty Start Date End Date Elver Srinivasan MD PCP - General Family Medicine 10/02/19 12/04/24 Lyly Beverly, PAC [address] [place] [address] PCP - General Physician Inspector Casing 12/05/24 Jalen Isaac MD [address] [address] [address] Consulting Physician Colon and Rectal Surgery 09/13/23 documented as of this encounter
--- OUTSIDE RECORDS SUMMARY | 2025-02-04 19:10 | XMS_ITS | Encounter Summary ---
Author Organization [facility] Address [address] [place] [address] Phone Care Team Providers Care Air Tool Operator Name Role Phone Elver Srinivasan MD Primary Care Provider [phone] Jalen Isaac MD Unavailable Lyly Beverly PAC Primary Care Pro vider Reason for Visit * Reason Comments Medication Refill Encounter Details Date Type Department Care Team (Late st Contact Info) Description 12/12/2020 Refill [facility] [address] [place] [address] Elver Srinivasan MD [address] [place] [address] Medication Refill Social History Tobacco Use Types [...] Industry Job Start Date Job End Date [employer] Not on file Not on file Not on file documented as of this encounter Miscellaneous Notes * Telephone Encounter - PatrickgagandeepScootery, RN - 12/12/2020 10:42 AM CST Medication failed the protocol, provider to review and approve the medication order if appropriate. Requested Prescriptions Pending Prescriptions Disp Refills sertraline (ZOLOFT) 100 MG Tablet [Pharmacy Med Name: SERTRALINE HYDROCHLORIDE 100MG TABLET] 135 Tab 12 Sig: TAKE 1 & 1/2 TABLETS BY MOUTH EVERY DAY Not Delegated - Psychiatry: Antidepressants Failed - 12/12/2020 10:16 AM Failed - This refill cannot be delegated Passed - Valid encounter within last 12 months Past Office Visits Recent Outpatient Visits 1 month ago Anxiety [facility] Elver Cook MD 5 months ago Acquired hypothyroidism [facility] Elver Cook MD 9 months ago Anxiety [facility] Elver Cook MD 11 months ago Other chest pain [facility] Elver Moreno MD 1 year ago Moderate episode of recurrent major depressive disorder (HCC) 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 Showing future appointments within next 90 days with a meds authorizing provider and meeting all other requirements CARE NURSE documented in this encounter Plan of Treatment Upcoming Encounters Date Type Department Care Team (Late st Contact Info) Description 03/04/2025 2:00 PM CDT [facility] [address] [place] [address] Lyly Beverly, PAC [address] [place] [id number] 03/04/2025 3:00 PM CDT [facility] [address] [place] [address] Lyly Beverly, PAC [address] [place] [address] documented as of this encounter Visit Diagnoses Diagnosis Moderate episode of recurrent major depressive disorder (HCC) documented in this encounter Additional Health Concerns Infection Onset Date Last Indicated Resolved Time COVID - 19 11/10/2021 11/10/2021 11/30/2021 12:1 6 AM MEDICARE NURSE COVID - 19 07/21/2022 07/21/2022 07/31/2022 12:1 6 AM CDT COVID - 19 Confirmed 07/21/2022 07/21/2022 022 12:16 AM CDT Assessment Noted Time PHQ-9 Depression Total Score: 4 12/11/19 20 8:37 AM MEDICARE NURSE documented as of this encounter Care Teams Air Tool Operator Relationship Specialty Start Date End Date Elver Srinivasan MD PCP - General Family Medicine 10/02/19 12/04/24 Lyly Beverly, PAC [address] [place] [id number] PCP - General Physician Process Safety Engineer 12/05/24 Jalen Isaac MD [address] [address] Consulting Physician Colon and Rectal Surgery 09/13/23 documented as of this encounter
== END 2025-02-04 18:55 | disposition home or self-care (01) ==
PROVIDERS: Emergency Provider Nurse Practitioner; PCP Physician Assistant
DX: J44.1 Chronic obstructive pulmonary disease with (acute) exacerbation (principal); J06.9 Acute upper respiratory infection, unspecified; Z20.822 Contact with and (suspected) exposure to COVID-19; F17.210 Nicotine dependence, cigarettes, uncomplicated
CPT/HCPCS: 87426; 87804; 99213; G0463